=== PATIENT | male | born 1975 | race Two or more races ===

== ENCOUNTER 2020-07-29 18:51 | Emergency (ER) | payer OTHER, SELFPAY ==
[2020-07-29 19:02] VITALS: BP 131/84; PULSE 82; RESP 16; TEMP 36.3; O2SAT 98; BMI 26.0
--- NOTE | 2020-07-29 19:24 | XR_ITS ---
EXAMINATION: XR ELBOW, LEFT CLINICAL INFORMATION: Elbow injury COMPARISON: None TECHNIQUE: AP, lateral, and oblique views of the left elbow. FINDINGS: The bones and soft tissues are unremarkable. A tiny enthesitis noted arising from the olecranon. No fracture or joint effusion. Alignment is anatomic. Joint spaces are maintained. XR/XR elbow LT min 3V IMPRESSION: No evidence of acute injury.
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
== END 2020-07-29 20:46 | disposition home or self-care (01) ==
PROVIDERS: Emergency Provider Emergency Medicine; PCP Nurse Practitioner Family
DX: S16.1XXA Strain of muscle, fascia and tendon at neck level, initial encounter (principal); S50.02XA Contusion of left elbow, initial encounter; M54.2 Cervicalgia; V43.52XA Car driver injured in collision with other type car in traffic accident, initial encounter; Y93.9 Activity, unspecified; Y92.410 Unspecified street and highway as the place of occurrence of the external cause; Y99.9 Unspecified external cause status; F17.200 Nicotine dependence, unspecified, uncomplicated; Z71.6 Tobacco abuse counseling; Z79.899 Other long term (current) drug therapy
CPT/HCPCS: 73080; 99283

== ENCOUNTER 2022-01-31 10:06 | Outpatient (REF) | payer MEDICAID, SELFPAY ==
--- NOTE | ~2022-01-31 | XR_ITS ---
EXAMINATION: XR shoulder LT min 2V CLINICAL INFORMATION: Reason for Exam PAIN IN LEFT SHOULDER COMPARISON: None. TECHNIQUE: Four views of the shoulder XR/XR shoulder LT min 2V FINDINGS/IMPRESSION: * No acute fracture or dislocation. * Moderate degenerative changes of the acromioclavicular joint with loss of joint space and degenerative spurring. The glenohumeral joint space remains maintained. * No soft tissue abnormality.
== END 2022-01-31 10:07 | disposition home or self-care (01) ==
LOC: HO.XRAY 10:06
PROVIDERS: PCP Family Medicine; Visit Provider Family Medicine
DX: M25.512 Pain in left shoulder (principal)
CPT/HCPCS: 73030

== ENCOUNTER 2022-05-08 08:14 | Outpatient (REF) | payer MEDICAID, SELFPAY ==
--- NOTE | 2022-05-08 08:17 | EMG_ITS ---
Left median and ulnar motor and sensory studies were performed; left radial sensory study was performed; and left median and lateral antecubital sensory studies were performed. Paraspinal and limb muscles were tested with a needle. IMPRESSION: 1. 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 2. Mild left median neuropathy across carpal tunnel. 3. No evidence of radiculopathy. MD MELLO Auguste/KRYSTLE / [id number]
== END 2022-05-08 08:15 | disposition home or self-care (01) ==
LOC: HO.NEURO 08:14
PROVIDERS: Visit Provider Family Medicine
DX: M25.512 Pain in left shoulder (principal)
CPT/HCPCS: 95886; 95910

== ENCOUNTER → 2022-05-21 08:19 | Outpatient (REF) | payer MEDICAID, SELFPAY ==
--- NOTE | 2022-05-21 08:24 | CA_ITS ---
Transthoracic Echocardiogram Patient (Last, First, Middle): Hudson Atkins, Gender: Male Date of : 1975 Age: 46 Procedure Date: 05/21/2022 Procedure Type: Transthoracic Echocardiogram Location: OP Height: 180.34 cm Weight: 95.26 kg BSA: 2.15 m2 Heart Rate: 66 bpm BP: 122 / 82 mmHg [employer]eral Home Manager: SB Referring MD: Funmilayo Kellogg MD Senior Quality Assurance Analyst: Reynaldo Patel MD Symptoms: R42 DIZZINESS GIDDINESS R60.0 EDEMA Study Quality: Adequate ECG Rhythm: Sinus Conclusions: - 1. Normal LV systolic and diastolic function 2. Normal cardiac valvular Doppler 3. No gross pericardial effusion Findings Left Ventricle Normal left ventricular size, thickness, and systolic function. The visually estimated ejection fraction is between 60-65%. Spectral Doppler is indicative of a normal filling pattern. Peak GLS is -15.6%, which is marginally reduced. Right Ventricle Normal right ventricular cavity size and systolic function. Atria Both atria are normal in size. Interatrial shunt cannot be excluded. Aortic Valve Normal aortic valve structure and function. There is no aortic valve stenosis. There is no aortic valve regurgitation. Mitral Valve Normal mitral valve structure and function. There is trace mitral valve regurgitation. There is no mitral valve stenosis. Pulmonic Valve The pulmonic valve is likely normal. Tricuspid Valve Likely normal tricuspid valve structure and function. Tricuspid regurgitation envelope is inadequate for calculation of right ventricular systolic pressure. Great Vessels All visible segments of the aorta are normal in size. The pulmonary artery was not well visualized. Venous The inferior vena cava was not well visualized. Pericardium/Pleural There is no evidence of pericardial effusion. Prior Study Comparison No prior study available for comparison. Measurements 2D Linear Measurements IVSd: 0.93 0.6-0.9/0.6-1.0 cm LVIDd: 4.27 3.9-5.3/4.2-5.9 cm LVIDd Index: 1.99 2.4-3.2/2.2-3.1 cm/m2 LVIDs: 2.96 2.0-3.6 cm LVPWd: 1.08 0.7-1.1 cm LA Diam: 3.90 2.7-3.8/3.0-4.0 cm LAIDs Index: 1.81 1.5-2.3 cm/m2 LV Mass: 176.73 67-162/88-224 g LV Mass Index: 82.20 43-95/49-115 g/m2 LVOT Diam: 2.10 3.0+(-)1.3 cm 2D Systolic Function EF 4C: 69.20 >55% Mitral Valve MV Pk E: 0.88 MV PK A: 0.58 MV Decel Time: 220.00 E/A: 1.50 E'Lateral: 9.90 E'Medial: 8.16 E/E' Med: 10.80 E/E' Lat: 8.90 PHT: 65.00 MVA PHT: 3.38 Decel [place]: 4.00 Aortic Valve AoV Pk [place]: 1.20 AoV Mn [place]: 0.81 AoV VTI: 0.24 AoV Pk Grad: 6.00 Aov Mn Grad: 3.00 DESI Cont.VTI: 2.89 LVOT LVOT Pk [place]: 1.07 LVOT Mn [place]: 0.72 LVOT VTI: 0.20 LVOT Pk Grad: 5.00 LVOT Mn Grad: 2.00 LVOT Diam: 2.10 LVOT Area: 3.46 Diastolic Function MV Pk E: 0.88 MV Pk A: 0.58 E/A: 1.50 E'Medial: 8.16 E/E' Med: 10.80 E' Laterial: 9.90 E/E' Lat: 8.90 Right Ventricle TAPSE (mm): 19.80 TVS' [place]: 12.40 Great Vessels Aorta Sinus of Valsalva: 3.30 2.0-3.5 cm Ao Asc: 3.10 2.1-3.4 cm Pulmonary Veins Pulm Vein S/D 0.80 Pulmonary Valve PV Pk [place]: 0.96 Peak PV Grad: 4.00 Updated in Other Vendor System with Status of Final Reynaldo Patel MD electronically signed on 05/21/2022 11:25:50 AM with status of Final
== END ==
LOC: HO.CARD 08:19
PROVIDERS: PCP Family Medicine; Visit Provider Family Medicine
DX: R42 Dizziness and giddiness (principal); R60.0 Localized edema
CPT/HCPCS: 93306; 93356

== ENCOUNTER 2022-06-03 10:32 | Outpatient (REF) | payer MEDICAID, SELFPAY ==
--- NOTE | ~2022-06-03 | XR_ITS ---
EXAMINATION: BILATERAL KNEES CLINICAL INFORMATION: Pain. COMPARISON: 10/18/2014 and 06/10/2012 TECHNIQUE: AP and lateral views of each knee. FINDINGS: RIGHT KNEE: There is no evidence of acute fracture or dislocation of the right knee. There is a prominent spur seen inferior aspect of the patella at the patellofemoral joint. There is patella spur site of insertion of the quadriceps tendon. There is a small right knee effusion. Right knee joint space is maintained. LEFT KNEE: No acute fracture or dislocation is seen. There is a small left knee effusion. Left knee joint spaces are maintained. There is a small spur inferior undersurface of the patella. No destructive bony lesions identified. XR/XR knee LT 2V IMPRESSION: No evidence of acute fracture or dislocation of the right or left knee. Patellofemoral joint degenerative change right greater than left. Small bilateral knee effusions. Joint spaces maintained bilaterally.
--- NOTE | ~2022-06-03 | XR_ITS ---
EXAMINATION: BILATERAL KNEES CLINICAL INFORMATION: Pain. COMPARISON: 10/18/2014 and 06/10/2012 TECHNIQUE: AP and lateral views of each knee. FINDINGS: RIGHT KNEE: There is no evidence of acute fracture or dislocation of the right knee. There is a prominent spur seen inferior aspect of the patella at the patellofemoral joint. There is patella spur site of insertion of the quadriceps tendon. There is a small right knee effusion. Right knee joint space is maintained. LEFT KNEE: No acute fracture or dislocation is seen. There is a small left knee effusion. Left knee joint spaces are maintained. There is a small spur inferior undersurface of the patella. No destructive bony lesions identified. XR/XR knee RT 2V IMPRESSION: No evidence of acute fracture or dislocation of the right or left knee. Patellofemoral joint degenerative change right greater than left. Small bilateral knee effusions. Joint spaces maintained bilaterally.
== END 2022-06-03 10:33 | disposition home or self-care (01) ==
LOC: HO.XRAY 10:32
PROVIDERS: PCP Family Medicine; Visit Provider Family Medicine
DX: M25.561 Pain in right knee (principal); M25.562 Pain in left knee
CPT/HCPCS: 73560

== ENCOUNTER 2022-06-19 10:00 | Outpatient (RCR) | payer MEDICAID, SELFPAY | END 2022-08-27 07:53 | disposition home or self-care (01) | LOC: HO.PTCHIC 10:00 | PROVIDERS: PCP Family Medicine; Visit Provider Family Medicine | DX: M25.512 Pain in left shoulder (principal) | CPT/HCPCS: 97110; 97140; 97161 ==

== ENCOUNTER → 2022-09-16 14:52 | Outpatient (BNVA) | payer MEDICAID, SELFPAY | PROVIDERS: PCP Family Medicine; Visit Provider Surgery Vascular Surgery | DX: I83.11 Varicose veins of right lower extremity with inflammation (principal) | CPT/HCPCS: 99202 ==

== ENCOUNTER 2022-10-10 12:42 | Outpatient (REF) | payer MEDICAID, SELFPAY ==
--- NOTE | ~2022-10-10 | US_ITS ---
EXAMINATION: US VENOUS REFLUX/INSUFFICIENCY CLINICAL INFORMATION: The patient is a 47 year-old female with right lower extremity varicosities and inflammation. COMPARISON: None. TECHNIQUE: Bilateral lower extremity and venous insufficiency ultrasound was performed with velocity measurements. Color flow Doppler imaging was performed. FINDINGS: RIGHT SIDE: GREATER SAPHENOUS VEIN: The right saphenofemoral junction measures 0.7 cm. There is no reflux. The proximal thigh measurement is 0.3 cm. There is no reflux. The mid thigh measurement is 0.4 cm. There is no reflux. The above-knee measurement is 0.4 cm. There is no reflux. The at-knee measurement is 0.3 cm. There is no reflux. The below-knee measurement is 0.3 cm. The reflux time is 2076 ms. The mid-calf measurement is 0.3 cm. There is no reflux. The ankle measurement is 0.3 cm. There is no reflux. LESSER SAPHENOUS VEIN: The saphenofemoral popliteal junction measurement is 0.1 seconds. There is no reflux. The mid-calf measurement is 0.1 cm. There is no reflux. The distal-calf measurement is 0.1 cm. There is no reflux. A medial accessory right greater saphenous vein is seen, with saphenofemoral junction measurement of 0.3 cm and mid-thigh measurement of 0.2 cm. This shows no reflux. LEFT SIDE: GREATER SAPHENOUS VEIN: The right saphenofemoral junction measures 0.6 cm. There is no reflux. The proximal thigh measurement is 0.4 cm. There is no reflux. The mid thigh measurement is 0.2 cm. There is no reflux. The above-knee measurement is 0.3 cm. There is no reflux. The at-knee measurement is 0.2 cm. There is no reflux. The below-knee measurement is 0.2 cm. There is no reflux. The mid-calf measurement is 0.2 cm. There is no reflux. The ankle measurement is 0.2 cm. There is no reflux. A lateral accessory left greater saphenous vein is seen, with saphenofemoral junction measurement of 0.3 cm and mid-thigh measurement of 0.3 cm. This shows no reflux. LESSER SAPHENOUS VEIN: The saphenofemoral popliteal junction measurement is 0.2 seconds. There is no reflux. The mid-calf measurement is 0.1 cm. There is no reflux. The distal-calf measurement is 0.1 cm. There is no reflux. BILATERAL DEEP VENOUS SYSTEMS: There is no deep insufficiency on the right. No right deep venous thrombosis is seen. There is no deep insufficiency on the left. No left deep venous thrombosis is seen. US/US venous duplex LE BI IMPRESSION: 1. There is hemodynamically significant reflux of the below-knee right greater saphenous vein. 2. No hemodynamically significant reflux is seen of the left greater saphenous vein. 3. No hemodynamically significant reflux is seen of the bilateral lesser saphenous veins.
== END 2022-10-10 12:43 | disposition home or self-care (01) ==
LOC: HO.US 12:42
PROVIDERS: PCP Family Medicine; Visit Provider Surgery Vascular Surgery
DX: I83.893 Varicose veins of bilateral lower extremities with other complications (principal)
CPT/HCPCS: 93970

== ENCOUNTER 2022-10-11 11:32 | Emergency (ER) | payer MEDICAID, SELFPAY ==
--- NOTE | 2022-10-11 11:34 | ED.GENADULT ---
HPI - General Adult General Chief complaint: Upper Respiratory Symptoms <RADHA Powell - Last Filed: 10/11/22 11:40> Stated complaint: throat pain <RADHA Powell - Last Filed: 10/11/22 11:40> Time Seen by Provider: 10/11/22 12:20 <RADHA Powell - Last Filed: 10/11/22 11:40> Source: patient <Shakira Rojas CNP - Last Filed: 10/11/22 13:02> Mode of arrival: ambulatory <Shakira Rojas CNP - Last Filed: 10/11/22 13:02> Limitations: no limitations <Shakira Rojas CNP - Last Filed: 10/11/22 13:02> History of Present Illness HPI narrative: Patient is a 47-year-old male presents to the emergency department for evaluation of rhinorrhea, sore throat, intermittent tactile fever. Symptom onset was yesterday. Denies any known sick contacts. Denies dysphagia. Denies neck stiffness. Denies associated headache, lightheadedness, vision change, shortness of breath, difficulty breathing. <Shakira Rojas CNP - Last Filed: 10/11/22 13:02> Related Data Home medications: Home Medications Medication Instructions Recorded Confirmed amitriptyline 50 mg tablet 50 mg PO BEDTIME 09/16/22 ascorbic acid (vitamin C) 500 mg 500 mg PO BID 09/16/22 tablet (Vitamin C) buprenorphine 8 mg-naloxone 2 mg 10 mg sublingual DAILY 09/16/22 sublingual film (Suboxone) fwfmwcngfl-lwhkqxvlzsvrg-dyozlyug 1 - 2 tab PO Q6H PRN 09/16/22 50 mg-325 mg-40 mg tablet cholecalciferol (vitamin D3) 50 50 mcg PO DAILY 09/16/22 mcg (2,000 unit) tablet omeprazole 20 mg capsule,delayed 20 mg PO QAM 09/16/22 release Previous Rx's Medication Instructions Recorded cyclobenzaprine 5 mg tablet 5 - 10 mg PO TID PRN muscle spasm 07/29/20 #20 tabs ibuprofen 600 mg tablet 600 mg PO Q6H PRN pain #20 tabs 07/29/20 <RADHA Powell - Last Filed: 10/11/22 11:40> Allergies/adverse reactions: Allergies Allergy/AdvReac Type Severity Reaction Status Date / Time topiramate [From TOPAMAX] Allergy Unknown SENSATION Verified 09/16/22 15:08 OF PINS AND NEEDLES IN HANDS <RADHA Powell - Last Filed: 10/11/22 11:40> Review of Systems Review of Systems: Constitutional: Positive tactile fever. No chills. No weakness. No fatigue. ENT/ Mouth: No Ear Pain, positive Nasal Congestion, positive sore throat, positive Rhinorrhea, No Swallowing Difficulty Skin: No rash or itching. Cardiovascular: No chest pain. No palpitations. Respiratory: No shortness of breath. Positive cough. No sputum production. Gastrointestinal: No nausea. No vomiting. No diarrhea. No abdominal pain. Genitourinary: No burning micturition. No urinary frequency. Neurologic: No headache. No dizziness. No syncope. No numbness or tingling in the extremities. Musculoskeletal: No muscle pain. No back pain. No joint pain or stiffness. <Shakira Rojas CNP - Last Filed: 10/11/22 13:02> Yes all other systems are reviewed and are negative <Shakira Rojas CNP - Last Filed: 10/11/22 13:02> [facility] Past Medical History Attestation statement: The following information was validated with the patient. <Shakira Rojas CNP - Last Filed: 10/11/22 13:02> Source: old records reviewed <Shakira Rojas CNP - Last Filed: 10/11/22 13:02> Medical History: Medical History Migraines <RADHA Powell - Last Filed: 10/11/22 11:40> Social History Social History: Social History (Updated 09/16/22 @ 15:10 by ALEX Kelsey) Patient Tobacco Use Status: Former Tobacco user Advance Directives: No <RADHA Powell - Last Filed: 10/11/22 11:40> Physical Exam ED Vital Signs: Vital Signs - 24 hr 10/11/22 11:41 Temperature 98.2 F Pulse Rate 95 Respiratory Rate 20 Blood Pressure 129/84 Pulse Oximetry 97 Oxygen Delivery Method Room Air BMI result Body Mass Index 30.7 <RADHA Powell - Last Filed: 10/11/22 11:40> Vital Signs - 24 hr 10/11/22 11:41 Temperature 98.2 F Pulse Rate 95 Respiratory Rate 20 Blood Pressure 129/84 Pulse Oximetry 97 Oxygen Delivery Method Room Air BMI result Body Mass Index 30.7 <Shakira Rojas CNP - Last Filed: 10/11/22 13:02> Appearance: Alert.?Oriented to person, place and time. No acute distress.?Normal affect. Eyes: Pupils equal, round and reactive to light.? ENT: Pharynx mildly erythematous, no exudates, tonsillar hypertrophy. Uvula midline. No trismus. No drooling. Neck: Normal inspection.? Neck supple.??No cervical adenopathy CVS: Heart sounds normal. Normal heart rate and rhythm.? Pulses normal.?? Respiratory: No respiratory distress.? Lung sounds clear to auscultation bilaterally?? Abdomen: Soft and non-tender. Skin: Skin warm and dry.? Normal skin color.? Extremities: No lower extremity edema.? Neuro: Moves all extremities spontaneously. Sensation intact bilaterally. Ambulates with normal steady gait. <Shakira Rojas CNP - Last Filed: 10/11/22 13:02> Course Course Course Narrative: RME performed by Loree Butt PA-C. Patient is a 47 year old male presenting to the emergency department with a sore throat over the last 2 days. Swabs ordered. Patient placed back in waiting room pending results and room availability. <RADHA Powell - Last Filed: 10/11/22 11:40> Medical Decision Making Medical Decision Making MDM Narrative: Patient is a 47-year-old male presents emergency department for evaluation of upper respiratory symptoms. At the time of examination he is overall well-appearing, nontoxic. Vitals within normal limits. Reviewed testing obtained from E; COVID-19, influenza, RSV, and strep are all negative. Examination not consistent with peritonsillar retropharyngeal abscess. At this time symptoms are most consistent with viral upper respiratory infection. Reassurance provided, discussed conservative management of, reviewed worrisome signs symptoms of warrant re-evaluation in the emergency department. All questions answered. Discharged home in stable condition. <Shakira Gallegobenjamín Rojas CNP - Last Filed: 10/11/22 13:02> Differential Diagnosis Differential Diagnoses: The differential diagnosis associated with the presentation includes (As noted above) <Shakiragudelia Rojas CNP - Last Filed: 10/11/22 13:02> Lab Data MDM Lab Attestation statement: I reviewed the patient's lab results. <Shakira Rojas CNP - Last Filed: 10/11/22 13:02> Labs: Lab Results 10/11/22 10/11/22 Range/Units 11:44 11:44 Influenza Type A (PCR) NEGATIVE (Negative) Influenza Type B (PCR) NEGATIVE (Negative) RSV RNA Qual (PCR) NEGATIVE (Negative) SARS-CoV-2 RNA (RT-PCR) NEGATIVE (Negative) S. pyogenes GrpA FRANNIE Negative (Negative) <RADHA Powell - Last Filed: 10/11/22 11:40> Lab Results 10/11/22 10/11/22 Range/Units 11:44 11:44 Influenza Type A (PCR) NEGATIVE (Negative) Influenza Type B (PCR) NEGATIVE (Negative) RSV RNA Qual (PCR) NEGATIVE (Negative) SARS-CoV-2 RNA (RT-PCR) NEGATIVE (Negative) S. pyogenes GrpA FRANNIE Negative (Negative) <Shakira Rojas CNP - Last Filed: 10/11/22 13:02> Prescription Management I considered prescription management with: Pain Medication and Antibiotic (Determined viral etiology at this time, antibiotics deferred) <Shakira Rojas CNP - Last Filed: 10/11/22 13:02> Discharge Plan Discharge Clinical Impression: Pharyngitis <RADHA Powell - Last Filed: 10/11/22 11:40> Patient Disposition: Home, Self-Care <RADHA Powell - Last Filed: 10/11/22 11:40> Instructions: Pharyngitis (ED) <RADHA Powell - Last Filed: 10/11/22 11:40> Additional Instructions: As discussed, your testing today for COVID, flu, and strep were all negative. There is no indication of an abscess to your throat at this time. Viral upper respiratory infections can cause symptoms that you are experiencing. Please be sure to rest, stay well hydrated and drink plenty of fluids. Warm salt water gargles, throat lozenges, Chloraseptic throat spray can be helpful symptoms as well You can take ibuprofen 200 mg, 3 tablets (600mg) every 6-8 hours as needed for pain, in addition to Tylenol 500 mg, 2 tablets (1,000mg) every 4-6 hours as needed for pain, but not to exceed 3 doses daily (3,000mg).? Follow-up with your primary care provider as needed for persistent symptoms Return to emergency department any new or worsening symptoms or concerns. <RADHA Powlel - Last Filed: 10/11/22 11:40> Prescriptions: No Action ibuprofen 600 mg tablet 600 mg PO Q6H PRN (Reason: pain) Qty: 20 0RF cyclobenzaprine 5 mg tablet 5 - 10 mg PO TID PRN (Reason: muscle spasm) Qty: 20 0RF Rx Instructions: Take 1 or 2 tablets every 8 hours as needed for muscle spasm, this medication causes drowsiness so no driving for 8 hours after taking omeprazole 20 mg capsule,delayed release(DR/EC) 20 mg PO QAM buprenorphine-naloxone [Suboxone] 8-2 mg film 10 mg sublingual DAILY amitriptyline 50 mg tablet 50 mg PO BEDTIME ggjkidrapq-ajnzvigqlmaia-rjsn 50-325-40 mg tablet 1 - 2 tab PO Q6H PRN ascorbic acid (vitamin C) [Vitamin C] 500 mg tablet 500 mg PO BID cholecalciferol (vitamin D3) 50 mcg (2,000 unit) tablet 50 mcg PO DAILY <RADHA Powell - Last Filed: 10/11/22 11:40> Referrals: Funmilayo Kellogg MD [Primary Care Provider] - <RADHA Powell - Last Filed: 10/11/22 11:40>
[2022-10-11 11:41] VITALS: BP 129/84; PULSE 95; RESP 20; TEMP 36.8; O2SAT 97; BMI 30.7
[2022-10-11 12:00] LABS: IDNOW Serial# 6674DD1D; Strep A Nucleic Acid Negative (Negative)
[2022-10-11 12:29] LABS: Influenza A PCR NEGATIVE (Negative); Influenza B PCR NEGATIVE (Negative); Resp Syncy Virus RNA Qual PCR NEGATIVE (Negative); SARS COV2 PCR INHOUSE NEGATIVE (Negative)
== END 2022-10-11 13:06 | disposition home or self-care (01) ==
PROVIDERS: Physician Assistant Medical; Emergency Provider Emergency Medicine; PCP Family Medicine
DX: J02.9 Acute pharyngitis, unspecified (principal); Z20.822 Contact with and (suspected) exposure to COVID-19; Z20.828 Contact with and (suspected) exposure to other viral communicable diseases; F11.20 Opioid dependence, uncomplicated; Z79.899 Other long term (current) drug therapy
CPT/HCPCS: 0241U; 36415; 87651; 99282; 99283

== ENCOUNTER → 2022-11-04 10:56 | Outpatient (BNVA) | payer MEDICAID, SELFPAY | PROVIDERS: PCP Family Medicine; Visit Provider Surgery Vascular Surgery | DX: I83.11 Varicose veins of right lower extremity with inflammation (principal) | CPT/HCPCS: 99212 ==

== ENCOUNTER → 2023-01-16 10:31 | Outpatient (BNVA) | payer MEDICAID, SELFPAY | PROVIDERS: PCP Family Medicine; Visit Provider Orthopaedic Surgery | DX: G56.22 Lesion of ulnar nerve, left upper limb (principal); G56.02 Carpal tunnel syndrome, left upper limb | CPT/HCPCS: 99212 ==

== ENCOUNTER 2023-06-19 14:41 | Outpatient (REF) | payer MEDICAID, SELFPAY ==
--- NOTE | ~2023-06-19 | XR_ITS ---
EXAMINATION: XR HIP, LEFT CLINICAL INFORMATION: Left hip pain. COMPARISON: None available. TECHNIQUE: AP and frog-leg lateral views of the left hip. FINDINGS: Bony alignment and mineralization are normal. There is mild narrowing of the superolateral left acetabular joint space. Mild subchondral sclerosis is seen of the left acetabular roof. There is mild peripheral osteophyte formation of the articular surfaces of the left hip. The left femoral head is smooth. No fracture or dislocation is seen. The left sacroiliac joint and the pubic symphysis are well-maintained. No foreign body is noted. XR/XR hip LT min 2V IMPRESSION: Mild osteoarthritic change is seen of the left hip. There is no fracture or dislocation.
== END 2023-06-19 14:42 | disposition home or self-care (01) ==
LOC: HO.HHCX 14:41
PROVIDERS: Visit Provider Family Medicine
DX: M25.552 Pain in left hip (principal)
CPT/HCPCS: 73502

== ENCOUNTER → 2023-07-13 08:37 | Outpatient (REF) | payer MEDICAID, SELFPAY ==
--- NOTE | 2023-07-13 08:40 | CA_ITS ---
Acquisition Time: 2023-07-13 08:48:17 Total Exercise Time: 00:08:05 Test Indications: chest pain Medications: Protocol: TOMAS Max HR: 153 BPM 87% of Pred: 174 BPM Max BP: 166/084 mmHG Max Work Load: 10.1 METS Exercise stress test with exercise 8 min 5 sec of Tomas protocol, achieving 87% MPHR, without anginal symptoms, without arrythmia, with normotensive response to exercise, with EKG changes meeting criteria for ischemia: 0.5 - 1mm ST depression with downsloping ST inferiorly and horizontal ST depression V6 which corrects quickly in recovery. Test reviewed with Dr Liu. Recommend stress echocardiogram for further evaluation. Referred By: Funmilayo Kellogg Overread By: MATT STINSON
== END ==
LOC: HO.CARD 08:37
PROVIDERS: PCP Family Medicine; Visit Provider Family Medicine
DX: R07.9 Chest pain, unspecified (principal)
CPT/HCPCS: 93017

== ENCOUNTER 2023-07-28 10:42 | Outpatient (REF) | payer MEDICAID, SELFPAY ==
[2023-07-28 11:56] LABS: Alanine Aminotransferase 42 U/L (0-40); Albumin Level 4.1 g/dL (3.5-5.0); Alkaline Phosphatase 138 U/L (39-117); Aspartate Amino Transferase 34 U/L (5-37); Bilirubin Direct 0.1 mg/dL (0.0-0.5); Bilirubin Total 0.4 mg/dL (0.0-1.0); Total Protein 7.4 g/dL (6.5-8.0)
[2023-07-28 12:36] LABS: HIV AB/AG Nonreactive (Nonreactive); HIV Num 1 0.06 S/CO (0.00-0.99); ~HepC Num1 0.05 S/CO (0.00-0.79); ~Hepatitis C Antibody Nonreactive (Nonreactive)
== END 2023-07-28 10:43 | disposition home or self-care (01) ==
LOC: HO.HHCL 10:42
PROVIDERS: Visit Provider Emergency Medicine
DX: Z11.4 Encounter for screening for human immunodeficiency virus [HIV] (principal); Z11.3 Encounter for screening for infections with a predominantly sexual mode of transmission; F11.20 Opioid dependence, uncomplicated
CPT/HCPCS: 36415; 80076; 86803; 87389

== ENCOUNTER 2023-08-29 08:30 | Emergency (ER) | payer MEDICAID, SELFPAY ==
--- NOTE | ~2023-08-29 | XR_ITS ---
EXAMINATION: XR ELBOW, RIGHT CLINICAL INFORMATION: Right elbow pain COMPARISON: Right elbow 02/20/2020 TECHNIQUE: AP, lateral, and oblique views of the right elbow. FINDINGS: There is a 3.5 cm large loose body along the anterior elbow joint. There is a small loose body seen lateral to the olecranon process on oblique view. A small olecranon process enthesophyte is noted. There is no joint effusion.. XR/XR elbow RT min 3V IMPRESSION: Large loose body along the anterior elbow joint and a small loose body lateral to the olecranon process. The larger loose body has increased in size since the previous exam 02/20/2020 and likely cause of pain. No acute fracture or dislocation seen.
[2023-08-29 08:34] VITALS: BP 131/78; PULSE 74; RESP 18; TEMP 36.2; O2SAT 98; BMI 30.7
--- NOTE | 2023-08-29 09:27 | ED.EXTPRO ---
HPI - Extremity Problem General Chief complaint: Extremity Injury, Upper Stated complaint: R arm pain Time Seen by Provider: 08/29/23 08:57 Source: patient Mode of arrival: ambulatory Limitations: no limitations History of Present Illness HPI Narrative: 48 year old male with pmhx significant for varicose veins and carpal tunnel presents to the ED today with pain/swelling of right elbow x1 day. States that he began to have right elbow pain exacerbated with movement yesterday while relaxing at home. Overnight his elbow began to swell. Reports taking ibuprofen this morning without relief of pain. Denies recent trauma or injury to the right elbow. Admits to having this pain years ago however never received a diagnosis and it ended up resolving on its own. Denies fever, chills, right shoulder pain, right wrist pain, numbness/tingling/weakness of the right upper extremity. Related Data Home Medications Medication Instructions Recorded Confirmed amitriptyline 50 mg tablet 50 mg PO BEDTIME 09/16/22 ascorbic acid (vitamin C) 500 mg 500 mg PO BID 09/16/22 tablet (Vitamin C) buprenorphine 8 mg-naloxone 2 mg 10 mg sublingual DAILY 09/16/22 sublingual film (Suboxone) awqiuivafm-hztdgjsbgiaqr-wolluupu 1 - 2 tab PO Q6H PRN 09/16/22 50 mg-325 mg-40 mg tablet cholecalciferol (vitamin D3) 50 50 mcg PO DAILY 09/16/22 mcg (2,000 unit) tablet omeprazole 20 mg capsule,delayed 20 mg PO QAM 09/16/22 release fluticasone propionate 50 1 spray intranasal DAILY 01/16/23 mcg/actuation nasal spray,suspension Previous Rx's Medication Instructions Recorded cyclobenzaprine 5 mg tablet 5 - 10 mg (1 - 2 x 5 mg) PO TID 07/29/20 PRN muscle spasm #20 tabs ibuprofen 600 mg tablet 600 mg PO Q6H PRN pain #20 tabs 07/29/20 naproxen 500 mg tablet 500 mg PO Q8-12H PRN pain (scale 08/29/23 score 4-6) #14 tabs prednisone 50 mg tablet 50 mg PO DAILY 5 days #5 tabs 08/29/23 Allergies Allergy/AdvReac Type Severity Reaction Status Date / Time topiramate [From TOPAMAX] Allergy Unknown SENSATION Verified 08/29/23 08:33 OF PINS AND NEEDLES IN HANDS Review of Systems Review of Systems: Constitutional: No fever, chills, fatigue, night sweats, weight changes ENT/Mouth: No ear pain, hearing loss, nasal congestion, sinus pain, rhinorrhea, sore throat Eyes: No eye pain, swelling, redness, vision changes, discharge Cardio: No chest pain, palpitations, JUDGE, orthopnea, peripheral edema Pulm: No SOB, cough, sputum, wheezing, dyspnea, hemoptysis GI: No nausea, vomiting, hematemesis, abdominal pain, diarrhea, constipation, hematochezia, melena : No irregular bleeding, dysuria, frequency, urgency, hesitancy, hematuria, flank pain, urinary flow changes, urinary incontinence or retention MSK: No back pain, neck pain, joint pain, myalgias, +right elbow pain/ swelling Skin: No lesions, rashes Neuro: No weakness, numbness, paresthesias, LOC, dizziness, headache All other systems reviewed and are negative. [facility] Past Medical History Attestation statement: The following information was validated with the patient. Source: old records reviewed and nursing notes reviewed Medical History Migraines Social History Social History Unable to assess alcohol history related to: Unknown Patient Tobacco Use Status: Former Tobacco user Use of substances other than those prescribed or required for medical reasons: Unknown Advance Directives: No Advance Directives Information Provided: No Current occupational status: unemployed Current occupation: left handed Physical Exam Vital Signs: Vital Signs: Last Vital Signs Temp 97.1 F 08/29/23 08:34 Pulse 74 08/29/23 08:34 Resp 18 08/29/23 08:34 BP 131/78 08/29/23 08:34 Pulse Ox 98 08/29/23 08:34 O2 Del Method Room Air 08/29/23 08:34 BMI result Body Mass Index 30.7 Vital signs stable, afebrile Const: General: cooperative, healthy appearing, comfortable, no acute distress, alert and awake Orientation/consciousness: patient oriented x3 Limitations: no limitations HEENT: Head: Yes normal to inspection Ears: hearing grossly normal bilaterally Eyes: General: appearance normal, both eyes and all related structures Conjunctivae: conjunctivae normal Sclerae: sclerae normal Pupils: Equal, round and reactive pupils present Neck: Neck: Yes normal visual inspection, Yes full ROM and Yes no lymphadenopathy Resp: Effort & Inspection: normal respiratory effort Auscultation: clear to auscultation bilaterally Cardio: Other: 2+ radial, ulnar, and brachial pulses to RUE Rate: regular rate Rhythm: regular rhythm Skin: General skin exam: no rashes or lesions noted Neuro: General: patient oriented x3, gait normal and moves all extremities Cranial nerves: Yes Equal, round and reactive pupils present Extrem: Other: + slight edema noted to ulnar aspect of right elbow. Full ROM intact to right elbow with pain elicited on flexion. Olecranon it WNL. No palpable deformity, warmth, or fluctuance. No tenderness to palpation of the right elbow. Strength to elbow 5/5 intact. NV intact distally. Manager Of Production strength intact. General: Yes full ROM, Yes capillary refill normal and Yes normal exam except as noted Course Course Course Narrative: 929-- radiographs of the right elbow showing large loose body along the anterior elbow joint, small loose body lateral to olecranon process, no acute fracture or dislocation. Likely the cause of patient's discomfort/swelling. Discussed results of x-ray with patient. Will place Oneal wrap to help with swelling. Prednisone and naproxen sent to pharmacy. Patient provided with a referral to Orthopedics for follow-up. Patient is in agreement with this plan. Patient has remained stable throughout ED visit today. Discussed strict return precautions. All questions answered at this time. Patient is agreeable with disposition and stable for discharge. Medical Decision Making Medical Decision Making MDM Narrative: 48 year old male with pmhx significant for varicose veins and carpal tunnel presents to the ED today with pain/swelling of right elbow x1 day. Vital signs stable, afebrile. Patient is nontoxic appearing and in no acute distress. On examination, there is slight edema noted to ulnar aspect of right elbow. Full ROM intact to right elbow with pain elicited on flexion. Olecranon it WNL. No palpable deformity, warmth, or fluctuance. No tenderness to palpation of the right elbow. Strength to elbow 5/5 intact. NV intact distally. Manager Of Production strength intact. Negative Tinel sign. 2+ radial, ulnar, brachial pulses to right upper extremity. NV intact distally. Clinical concern for MSK sprain/strain, arthritis, fracture, dislocation, lateral and medial epicondylitis, cubital tunnel syndrome. Unlikely gout, septic arthritis, septic joint, reactive arthritis, threat to limb, neurovascular compromise. Plan for radiographs and re-evaluation. Differential Diagnosis Differential Diagnoses: The differential diagnosis associated with the presentation includes as above. Admission/Observation Not indicated. Independent Interpretation I performed an independent interpretation of an: Plain X-Ray Interpretation: XR right elbow with large loose body along anterior elbow joint, agree with radiologist's interpretation. Radiology Impression Discussion of test interpretation with radiology: I have reviewed the radiologist's reading. Radiologist Impression: XR elbow RT min 3V IMPRESSION: Large loose body along the anterior elbow joint and a small loose body lateral to the olecranon process. The larger loose body has increased in size since the previous exam 02/20/2020 and likely cause of pain. No acute fracture or dislocation seen. Independent Historian Clinical information obtained from an independent historian. History obtained from or confirmed by: Friend External Record Review External record reviewed: Inpatient record, Office record, Outpatient record, Prior outpatient labs, Prior outpatient radiology, Primary care record and Outside ED record Prescription Management I considered prescription management with: Pain Medication and Other (steroid) Procedures Orthopedic Splinting/Casting Injury #1: Side: right Upper Extremity Injury Location: elbow Upper Extremity Immobilizer: Oneal wrap Critical Care Time Critical Care Time Critical Care Time: No Discharge Plan Discharge Clinical Impression: Loose body in elbow joint, Effusion of right elbow Patient Disposition: Home, Self-Care Instructions: Swollen Joint (ED) Additional Instructions: The x-ray of your right elbow shows loose bodies within the elbow joint. These are pieces of cartilage that break off and float around the joint causing pain. You were provided with an Oneal wrap today. Please keep this applied as the compression helps decrease swelling. You may take it off to shower. Prednisone as a steroid that has been sent to your pharmacy. Take this over the next 5 days as prescribed. Naproxen as an anti-inflammatory that has been sent to your pharmacy. Take this as needed for pain/discomfort. Do not take this with ibuprofen or other NSAIDs as it can cause increased risk of GI bleeding. You have been provided with a referral to an orthopedic doctor. Call them to make an appointment. They will not call you. Follow-up with your primary care provider as needed. If symptoms persist or worsen please return to the emergency department. The case of an emergency call 911. Prescriptions: New naproxen 500 mg tablet 500 mg PO Q8-12H PRN (Reason: pain (scale score 4-6)) Qty: 14 0RF prednisone 50 mg tablet 50 mg PO DAILY 5 Days Qty: 5 0RF No Action ibuprofen 600 mg tablet 600 mg PO Q6H PRN (Reason: pain) Qty: 20 0RF cyclobenzaprine 5 mg tablet 5 - 10 mg PO TID PRN (Reason: muscle spasm) Qty: 20 0RF Rx Instructions: Take 1 or 2 tablets every 8 hours as needed for muscle spasm, this medication causes drowsiness so no driving for 8 hours after taking omeprazole 20 mg capsule,delayed release(DR/EC) 20 mg PO QAM buprenorphine-naloxone [Suboxone] 8-2 mg film 10 mg sublingual DAILY amitriptyline 50 mg tablet 50 mg PO BEDTIME nqwiknndey-cdqzwzrunrkvt-dgnh 50-325-40 mg tablet 1 - 2 tab PO Q6H PRN ascorbic acid (vitamin C) [Vitamin C] 500 mg tablet 500 mg PO BID cholecalciferol (vitamin D3) 50 mcg (2,000 unit) tablet 50 mcg PO DAILY fluticasone propionate 50 mcg/actuation spray,suspension 1 spray intranasal DAILY Referrals: [facility] [Provider Group] - 5 days (XR elbow RT min 3V IMPRESSION: Large loose body along the anterior elbow joint and a small loose body lateral to the olecranon process. The larger loose body has increased in size since the previous exam 02/20/2020 and likely cause of pain. No acute fracture or dislocation seen.) Interventions: ED Discharge Assessment Last Done: 08/29/23 09:41 Discharge Date/Time: 08/29/23 09:42 Print Language: Montserratian
== END 2023-08-29 09:42 | disposition home or self-care (01) ==
PROVIDERS: Emergency Provider Emergency Medicine; PCP Family Medicine
DX: M24.021 Loose body in right elbow (principal); M25.421 Effusion, right elbow; F11.20 Opioid dependence, uncomplicated; Z79.899 Other long term (current) drug therapy; Z87.891 Personal history of nicotine dependence
CPT/HCPCS: 73080; 99283; 99284

== ENCOUNTER → 2023-09-04 10:34 | Outpatient (REF) | payer MEDICAID, SELFPAY ==
--- NOTE | 2023-09-04 10:37 | CA_ITS ---
Acquisition Time: 2023-09-04 10:41:58 Total Exercise Time: 00:09:20 Test Indications: ABN ETT CP Medications: SEE H Protocol: TOMAS Max HR: 160 BPM 92% of Pred: 173 BPM Max BP: 158/084 mmHG Max Work Load: 10.6 METS Exercise stress test with exercise 9 min 20 sec of Tomas protocol, achieving 92% MPHR, without anginal symptoms, with isolated PVC in early recovery, with normotensive response to exercise, with borderline EKG changes leads III, V5-V6, Some artifact present, can't exclude ischemia. Echo images obtained at rest and immediately post peak exercise. heart rate noted to come down quickly in recovery. Definity contrast used. Test reviewed with Dr Patel Referred By: Funmilayo Kellogg Overread By: MATT STINSON
== END ==
LOC: HO.CARD 10:34
PROVIDERS: PCP Family Medicine; Visit Provider Family Medicine
DX: R94.39 Abnormal result of other cardiovascular function study (principal)
CPT/HCPCS: 93350; Q9957

== ENCOUNTER 2023-10-09 10:05 | Outpatient (AMB) | payer MEDICAID, SELFPAY ==
[2023-10-09 10:07] VITALS: BMI 30.7
--- NOTE | 2023-10-09 10:07 | A.OFFVIS_ITS ---
Intake Vital Signs 10/09/23 10:07 Height 5 ft 11 in Weight 220 lb BMI 30.7 Intake Visit Reasons: [facility] - RT Elbow pain Intake Note: Hudson is a 48 year old right hand dominant male who presents today for a evolution of his right elbow pain. patient reports pain started about a month ago. He states that his pain is worse when he hyperextend his arm. Patient states that he is not having any pain at the moment. Allergies topiramate [From TOPAMAX] Allergy (Unknown, Verified 10/09/23 10:07) SENSATION OF PINS AND NEEDLES IN HANDS HPI [facility] - RT Elbow pain HPI Details 48-year-old male who presents in the off ice today, as a new patient, for an evaluation of right elbow pain. The patient reports his pain began about a month ago, in 08/2023. He claims the pain is worse when hyper-extending the right elbow. He states he is not having any pain at this time. He states he was given an DELROY wrap. He reports some limited ROM, but does not have pain. He denies kidney issues. He reports being under currently cardiac evaluation. He denies having any implants in the body. [facility], [facility] Medical History Migraines Social History Unable to assess alcohol history related to: Unknown Patient Tobacco Use Status: Former Tobacco user Current occupational status: unemployed Current occupation: left handed Review of Systems Const All systems reviewed & are unremarkable except as noted in HPI and below Physical Exam Vital Signs: BMI result Body Mass Index 30.7 Const General: cooperative and no acute distress Orientation/consciousness: patient oriented x3 Resp Effort & Inspection: normal respiratory effort and able to speak in complete sentences Cardio Peripheral pulses: Peripheral pulses 2+ throughout Skin General skin exam: no rashes or lesions noted Neuro General: patient oriented x3 Extrem Other: Right elbow: Normal to inspection. No ecchymosis, erythema, or edema. No tenderness to palpation over the olecranon. Hard mobile mass just proximal to the medial epicondyle that is palpable No tenderness to the medial or lateral epicondyle. NVI. Assessment & Plan Assessment & Plan (1) Mass of right elbow: Code(s): R22.31 - Localized swelling, mass and lump, right upper limb Plan Mr. Atkins is a 48-year-old male who presents in the office today, as a new patient, for an evaluation of right elbow pain. The patient reports his pain began about a month ago, in 08/2023. He claims the pain is worse when hyper- extending the right elbow. He states he is not having any pain at this time. He states he was given an DELROY wrap. He reports some limited ROM, but does not have pain. He denies kidney issues. He reports being under currently cardiac evaluation. He denies having any implants in the body. The patient will be referred for an MRI with and without contrast for further evaluation of the right elbow. Follow up will be after the MRI is obtained or in 4 weeks to discuss results, or sooner if needed. X-rays of the right elbow, obtained on 08/29/2023, revealed: There is a 3.5 cm large loose body along the anterior elbow joint. There is a small loose body seen lateral to the olecranon process on oblique view. A small olecranon process enthesophyte is noted. There is no joint effusion. Orders: Orders MR elbow RT wo/w con Today R22.31 - Localized swelling, mass and lump, right upper limb Patient Instructions: Scribed for Dede Carrero PA-C by Sallie Sanabria certified medical assistant, on 10/09/2023 at 10:07 am, EST. Coding Level of Care Code New Pt Level 4 (32242) Diagnoses Mass of right elbow R22.31
== END 2023-10-09 11:14 | disposition home or self-care (01) ==
PROVIDERS: PCP Family Medicine; Visit Provider Physician Assistant
DX: R22.31 Localized swelling, mass and lump, right upper limb (principal)
CPT/HCPCS: 99204

== ENCOUNTER → 2023-10-09 10:05 | Outpatient (BNVA) | payer MEDICAID, SELFPAY | PROVIDERS: PCP Family Medicine; Visit Provider Physician Assistant | DX: M25.521 Pain in right elbow (principal); R22.31 Localized swelling, mass and lump, right upper limb | CPT/HCPCS: 99212 ==

== ENCOUNTER 2023-10-09 14:14 | Outpatient (REF) | payer MEDICAID, SELFPAY | END 2023-10-09 14:15 | disposition home or self-care (01) | LOC: HO.MRI 14:14 | PROVIDERS: PCP Family Medicine; Visit Provider Physician Assistant | DX: Z13.89 Encounter for screening for other disorder (principal) ==

== ENCOUNTER 2023-11-10 12:27 | Outpatient (REF) | payer MEDICAID, SELFPAY ==
--- NOTE | ~2023-11-10 | XR_ITS ---
EXAMINATION: XR ABDOMEN KUB CLINICAL INDICATION: Suprapubic pain. Evaluate for stool volume or intestinal gas. COMPARISON: Ultrasound abdomen of 03/30/2017. CT abdomen and pelvis of 10/16/2014. TECHNIQUE: 2 AP views of the abdomen. FINDINGS: Moderate to large amount of stool in the colon. Nonobstructive bowel gas pattern. Degenerative changes in the lumbar spine and bilateral hips. Radiodensity overlying the right iliac region possibly representing a clip. XR/XR abdomen 1V IMPRESSION: Moderate to large amount of stool in the colon. Nonobstructive bowel gas pattern.
== END 2023-11-10 12:28 | disposition home or self-care (01) ==
LOC: HO.XRAY 12:27
PROVIDERS: PCP Family Medicine; Visit Provider Internal Medicine
DX: R10.2 Pelvic and perineal pain (principal)
CPT/HCPCS: 74018

== ENCOUNTER 2023-12-01 15:06 | Outpatient (AMB) | payer MEDICAID, SELFPAY ==
--- NOTE | 2023-12-01 15:08 | MHC.OFFVIS ---
Intake Vital Signs 12/01/23 15:11 Height 5 ft 11 in Weight 227 lb 1.218 oz BMI 31.7 BP 126/84 Blood Pressure Location Lt brachial Position Sitting Pulse 76 Intake Visit Reasons: [employer]/Dr. Kellogg/Abn stress test Intake Note: NPV w/ EKG Shank Taper Required: No Accompanied by: Self / Same As Patient Allergies topiramate [From TOPAMAX] Allergy (Unknown, Verified 12/01/23 15:11) SENSATION OF PINS AND NEEDLES IN HANDS Medication List - Last Reconciled 12/01/23 by Yon Moreira MD amitriptyline 50 mg PO BEDTIME ascorbic acid (vitamin C) (Vitamin C) 500 mg PO BID buprenorphine-naloxone 8-2 mg (Suboxone) 10 mg sublingual DAILY ltfqgwheko-qgkrcyxjjwcpl-skhm 50-325-40 mg 1 - 2 tabs PO Q6H PRN cholecalciferol (vitamin D3) 50 mcg PO DAILY cyclobenzaprine 5 - 10 mg (1 - 2 x 5 mg) PO TID PRN fluticasone propionate 50 mcg/actuation 1 spray intranasal DAILY ibuprofen 600 mg PO Q6H PRN naproxen 500 mg PO Q8-12H PRN omeprazole 20 mg PO QAM prednisone 50 mg PO DAILY 5 days HPI HPI Comments History of Present Illness Details [place] he is here for consultation regarding chest pain. He states that he gets substernal chest pain off and on. This can happen any time. Not necessarily with exertion. He also gets radiation down the left arm. Otherwise, some sensations of heart pounding off and on. No known coronary disease. No known diabetes or hypertension. History of substance abuse in the past but not recently. [facility] Medical History (Updated 12/01/23 @ 15:28 by Yon Moreira MD) Migraines Surgical History (Updated 12/01/23 @ 15:12 by Shakira Majano) No pertinent past surgical history Family History (Updated 12/01/23 @ 15:12 by Shakira Majano) Father Heart problem Social History Unable to assess alcohol history related to: Unknown Patient Tobacco Use Status: Former Tobacco user Current occupational status: unemployed Current occupation: left handed Review of Systems Const Denies chills, Denies daytime sleepiness, Denies fatigue, Denies fever(s), Denies frequent falls, Denies night sweats, Denies snoring, Denies weakness, Denies weight gain and Denies weight loss Eyes Denies loss of vision ENT Denies dizziness and Denies hearing loss Card Denies chest pain, Denies chest pain with activity, Denies syncope, Denies rapid heart rate, Denies edema, Denies claudication, Denies leg edema, Denies lightheadedness and Denies orthopnea Resp Denies cough, Denies excessive phlegm production, Denies snoring and Denies wheezing GI Denies abdominal pain, Denies hematochezia, Denies change in bowel habits, Denies change in stool character, Denies heartburn, Denies nausea and Denies vomiting Denies hematuria, Denies dysuria and Denies urinary frequency Musc Denies arthralgias, Denies muscle weakness, Denies numbness and Denies tingling Skin/Breast Denies nail changes and Denies rash Neuro Denies Abnormal speech present, Denies dizziness, Denies syncope, Denies frequent falls, Denies loss of vision, Denies memory loss, Denies numbness, Denies tingling and Denies weakness Psych Denies depression and Denies memory loss Endo Denies fatigue Aller/Immun Denies wheezing Physical Exam Vital Signs: Last Vital Signs Pulse 76 12/01/23 15:11 BP 126/84 12/01/23 15:11 BMI result Body Mass Index 31.7 Const General: comfortable and no acute distress Orientation/consciousness: patient oriented x3 HEENT Other: Unremarkable Head: Yes normal to inspection Neck Neck: Yes normal visual inspection Chest Chest palpation & inspection: normal inspection of the chest Resp Auscultation: clear to auscultation bilaterally Cardio Palpation: normal PMI Heart sounds: S1 normal heart sound present, S2 normal heart sound present, no gallops, no murmurs and no rubs GI Palpation (GI): Soft to palpation Back/Spine/Pelvis Other: unremarkable Skin General skin exam: no rashes or lesions noted Neuro General: patient oriented x3 Speech: No Abnormal speech present Extrem General: Yes normal to inspection Psych Mental Status: mental status grossly normal Assessment & Plan Assessment & Plan (1) Precordial chest pain: Code(s): R07.2 - Precordial pain Plan In the initial EKG, he was able to reach 10.1 Mets. Did not have angina. However, there was ST depression which was downsloping/horizontal concerning for ischemia. Then it was repeated with an exercise stress echo which was unremarkable at 10.6 Mets. He has had an echocardiogram in 2021 which showed preserved LVEF at 60-65% and mildly diminished peak global longitudinal strain. Based on the above, less likely that he has any obstructive CAD causing chest pains. However, as the symptoms are still bothersome, we will do a coronary CTA as well. Patient agrees. Orders: Orders Basic Metabolic Panel Today R07.2 - Precordial pain CT Cardiac Coronary Angio Today I25.10 - Atherosclerotic heart disease of [place] coronary artery without angina pectoris, R07.2 - Precordial pain Coding Level of Care Code New Pt Level 3 (95585) Diagnoses Precordial chest pain R07.2
[2023-12-01 15:11] VITALS: BP 126/84; PULSE 76; BMI 31.7
== END 2023-12-01 15:31 | disposition home or self-care (01) ==
PROVIDERS: PCP Family Medicine; Visit Provider Internal Medicine
DX: R07.2 Precordial pain (principal)
CPT/HCPCS: 93010; 99203

== ENCOUNTER → 2023-12-01 15:06 | Outpatient (BNVA) | payer MEDICAID, SELFPAY | PROVIDERS: PCP Family Medicine; Visit Provider Internal Medicine | DX: R07.2 Precordial pain (principal); I25.10 Atherosclerotic heart disease of native coronary artery without angina pectoris | CPT/HCPCS: 93005; 99202 ==

== ENCOUNTER 2023-12-09 08:56 | Outpatient (REF) | payer MEDICAID, SELFPAY ==
--- NOTE | ~2023-12-09 | XR_ITS ---
EXAMINATION: XR CHEST CLINICAL INFORMATION: Cough x3 weeks COMPARISON: Chest radiograph from : 2 views of the chest were obtained. FINDINGS: Slight bibasilar atelectasis versus evolving infectious/inflammatory etiology, right greater than left. No pneumothorax. Trachea is midline. Cardiac mediastinal silhouette is not enlarged. No large pleural effusion. Osseous structures are intact. Soft tissues are unremarkable. XR/XR chest 2V IMPRESSION: Slight bibasilar atelectasis versus evolving infectious/inflammatory etiology, right greater than left.
== END 2023-12-09 08:57 | disposition home or self-care (01) ==
LOC: HO.HHCX 08:56
PROVIDERS: Visit Provider Internal Medicine
DX: R06.02 Shortness of breath (principal); J06.9 Acute upper respiratory infection, unspecified
CPT/HCPCS: 71046

== ENCOUNTER 2023-12-11 09:35 | Outpatient (AMB) | payer MEDICAID, SELFPAY ==
--- NOTE | 2023-12-11 09:38 | A.OFFVIS_ITS ---
Intake Intake Visit Reasons: OV - rt elbow MRI review Intake Note: Hudson is a 48 year old left hand dominant male who presents today for a MRI review of right elbow pain. MRI is done 10/18/23. Patient reports he is feeling a bit worse. He states that his pain is worse when he is lifting something heavy or using the phone. Allergies topiramate [From TOPAMAX] Allergy (Unknown, Verified 12/11/23 09:40) SENSATION OF PINS AND NEEDLES IN HANDS HPI OV - rt elbow MRI review HPI Details 48-year-old left hand dominant male who presents in the office today for a follow up on a mass of the right elbow and MRI review. I last saw the patient in the office on 10/09/2023. While in the office today the patient reports he is feeling a bit worse. He also reports an increase in pain with lifting heavy items or using the phone. He states he woke up about 4 months ago with the pain in the elbow. He does not recall any injury at this time. [facility] Medical History (Updated 12/11/23 @ 10:22 by Sallie Sanabria) Migraines Surgical History (Updated 12/01/23 @ 15:12 by Shakira Majano) No pertinent past surgical history Family History (Updated 12/01/23 @ 15:12 by Shakira Majano) Father Heart problem Social History Unable to assess alcohol history related to: Unknown Patient Tobacco Use Status: Former Tobacco user Current occupational status: unemployed Current occupation: left handed Review of Systems Const All systems reviewed & are unremarkable except as noted in HPI and below Physical Exam Const General: cooperative and no acute distress Orientation/consciousness: patient oriented x3 Resp Effort & Inspection: normal respiratory effort and able to speak in complete sentences Cardio Peripheral pulses: Peripheral pulses 2+ throughout Skin General skin exam: no rashes or lesions noted Neuro General: patient oriented x3 Extrem Other: Right elbow: Normal to inspection. No ecchymosis, erythema, or edema. No tenderness to palpation over the olecranon. Hard mobile mass just proximal to the medial epicondyle that is palpable No tenderness to the medial or lateral epicondyle. NVI. Assessment & Plan Assessment & Plan (1) Loose body in right elbow: Code(s): M24.021 - Loose body in right elbow Plan Mr. Atkins is a 48-year-old left hand dominant male who presents in the office today for a follow up on a mass of the right elbow and MRI review. I last saw the patient in the office on 10/09/2023. While in the office today the patient reports he is feeling a bit worse. He also reports an increase in pain with lifting heavy items or using the phone. He states he woke up about 4 months ago with the pain in the elbow. He does not recall any injury at this time. Dr. Pina was available to see the patient with me while in the office today and a collaborative treatment plan was made. Conservative treatment verses surgical intervention was discuss with the patient while in the office today. Follow up will be [address] Pina, or sooner if needed. MRI of the right elbow, obtained at [facility] on 10/16/2023, which revealed: Large mass within the volar elbow joint likely reflects a large ossific joint body and does not demonstrate significant enhancement. Please correlate with radiographs and/or CT scan. There is evidence of tenosynovitis. Patient Instructions: Scribed by Sallie Sanabria medical referral coordinator, for Dede Carrero PA-C on 12/11/2023 at 9:40 am, EST. Coding Level of Care Code Est Pt Level 3 (98310) Diagnoses Loose body in right elbow M24.021
== END 2023-12-11 10:26 | disposition home or self-care (01) ==
PROVIDERS: PCP Family Medicine; Visit Provider Physician Assistant
DX: M24.021 Loose body in right elbow (principal)
CPT/HCPCS: 99213

== ENCOUNTER → 2023-12-11 09:35 | Outpatient (BNVA) | payer MEDICAID, SELFPAY | PROVIDERS: PCP Family Medicine; Visit Provider Physician Assistant | DX: M24.021 Loose body in right elbow (principal) | CPT/HCPCS: 99212 ==

== ENCOUNTER 2023-12-25 11:20 | Outpatient (REF) | payer MEDICAID, SELFPAY ==
[2023-12-25 14:53] LABS: MANUAL DIFF FLAG NO
[2023-12-25 14:58] LABS: Basophils Absolute Auto 0.1 X10*3/uL (0.0-0.2); Eosinophils Absolute Auto 0.5 X10*3/uL (0.0-0.4); Eosinophils Percent Auto 10.1 % (0-4); Hematocrit 43.4 % (42.0-52.0); Hemoglobin 14.7 g/dl (14.0-18.0); Imm Gran Abs Auto 0.01 X10*3/uL (0.00-0.03); Imm Gran Pct Auto 0.2 % (0.0-0.4); Lymphocytes Absolute Auto 2.3 X10*3/uL (1.2-4.9); Lymphocytes Percent Auto 45.9 % (20-40); Mean Corpuscular HGB Conc 33.9 g/dl (31.0-36.0); Mean Corpuscular Hemoglobin 29.2 pg (27.0-33.0); Mean Corpuscular Volume 86.3 fL (80.0-98.0); Mean Platelet Volume 12.1 fL (9.4-12.4); Monocytes Absolute Auto 0.5 X10*3/uL (0.1-1.2); Monocytes Percent Auto 8.9 % (2-11); Neutrophils Absolute Auto 1.7 x10*3/uL (2.0-8.3); Neutrophils Percent Auto 33.9 % (45-73); Platelet Count 217 X10*3/uL (160-400); Red Blood Count 5.03 X10*6/uL (4.60-5.80); Red Cell Distribution Width 13.6 % (11.0-16.0)
[2023-12-25 15:21] LABS: Anion Gap 10 (12-20); Blood Urea Nitrogen 14 mg/dL (9-16); Calcium 8.9 mg/dL (8.4-10.2); Carbon Dioxide 27 mmol/L (22-29); Chloride 106 mmol/L (96-108); Estimated Glomerular Filt Rate > 60; Glucose Random 95 mg/dL (60-115); Potassium 4.2 mmol/L (3.3-5.1); Sodium 139 mmol/L (135-145)
[2023-12-25 15:22] LABS: Alanine Aminotransferase 38 U/L (0-40); Albumin Level 3.9 g/dL (3.5-5.0); Alkaline Phosphatase 132 U/L (39-117); Aspartate Amino Transferase 31 U/L (5-37); Bilirubin Total 0.4 mg/dL (0.0-1.0); Total Protein 7.1 g/dL (6.5-8.0)
[2023-12-25 15:29] LABS: TSH reflex Free T4 0.67 uIU/mL (0.32-4.0)
== END 2023-12-25 11:21 | disposition home or self-care (01) ==
LOC: HO.CHCLDS 11:20
PROVIDERS: Visit Provider Family Medicine
DX: E66.3 Overweight (principal)
CPT/HCPCS: 36415; 80053; 84443; 85025

== ENCOUNTER 2024-01-26 16:19 | Outpatient (REF) | payer MEDICAID, SELFPAY | END 2024-01-26 16:20 | disposition home or self-care (01) | LOC: HO.CHCLNP 16:19 | PROVIDERS: Visit Provider Internal Medicine | DX: J02.9 Acute pharyngitis, unspecified (principal) | CPT/HCPCS: 87070 ==

== ENCOUNTER 2024-02-09 19:53 | Outpatient (REF) | payer MEDICAID, SELFPAY ==
[2024-02-15 01:19] LABS: C. Trachomatis RNA TMA, Throat NOT DETECTED; N. gonorrhoeae RNA TMA, Throat NOT DETECTED
== END 2024-02-09 19:54 | disposition home or self-care (01) ==
LOC: HO.HHCLNP 19:53
PROVIDERS: Visit Provider Student in an Organized Health Care Education/Training Program
DX: J02.9 Acute pharyngitis, unspecified (principal)
CPT/HCPCS: 87070; 87147; 87491; 87591

== ENCOUNTER 2024-03-14 10:16 | Outpatient (AMB) | payer MEDICAID, SELFPAY ==
--- NOTE | 2024-03-14 10:23 | MHC.OFFVIS ---
Vital Signs 03/14/24 10:25 Height 5 ft 11 in Weight 225 lb BMI 31.4 Handedness Left Intake Visit Reasons: OV - rt elbow pain Intake Note: Hudson is a 48 year old left hand dominant male who presents today for a follow up of right elbow pain. Last seen with Dede Carrero on 12/11/23. MRI of the right elbow, obtained at [facility] on 10/16/2023. Patient reports he noticed a lump in 2020 in the lateral aspect of his elbow that started off small, 2-3 years later he noticed is grow larger. He states increased pain withfelxion and extension. He has tried Motrin but found no relief. States he has numbness and tingling in both hands. Allergies topiramate [From TOPAMAX] Allergy (Unknown, Verified 03/14/24 10:31) SENSATION OF PINS AND NEEDLES IN HANDS HPI HPI OV - rt elbow pain: Details: Hudson is a 48 year old left hand dominant male who presents today for a follow up of right elbow pain. Last seen with Dede Carrero on 12/11/23. MRI of the right elbow, obtained at [facility] on 10/16/2023. Patient reports he noticed a lump in 2020 in the lateral aspect of his elbow that started off small, 2-3 years later he noticed is grow larger. He states increased pain withfelxion and extension. He has tried Motrin but found no relief. States he has numbness and tingling in both hands MRI of the right elbow, obtained at [facility] on 10/16/2023, which revealed: Large mass within the volar elbow joint likely reflects a large ossific joint body and does not demonstrate significant enhancement. Please correlate with radiographs and/or CT scan. There is evidence of tenosynovitis. [facility] Medical History Migraines Surgical History No pertinent past surgical history Family History Father Heart problem Social History Unable to assess alcohol history related to: Unknown Patient Tobacco Use Status: Former Tobacco user Current occupational status: unemployed Current occupation: left handed Physical Exam Vital Signs: BMI result Body Mass Index 31.4 Extrem Other: full ROM right elbow tender palpable mass deep to biceps that extends medial to lateral. Assessment & Plan Assessment & Plan (1) Mass of right elbow: Code(s): R22.31 - Localized swelling, mass and lump, right upper limb Category: Medical Plan: Large ossific body in anterior right distal humerus. MRI shows no enhancement. I discussed options of removal and the risk of nerve injury. He will let me know if he would like to proceed but he feels it is not painful and he is not comfortable taking a risk of complication. Coding Level of Care Code Est Pt Level 4 (32070) Diagnoses Mass of right elbow R22.31
[2024-03-14 10:25] VITALS: BMI 31.4
== END 2024-03-14 10:57 | disposition home or self-care (01) ==
PROVIDERS: PCP Family Medicine; Referring Provider Family Medicine; Visit Provider Orthopaedic Surgery
DX: R22.31 Localized swelling, mass and lump, right upper limb (principal)
CPT/HCPCS: 99213

== ENCOUNTER → 2024-03-14 10:16 | Outpatient (BNVA) | payer MEDICAID, SELFPAY | PROVIDERS: PCP Family Medicine; Visit Provider Orthopaedic Surgery | DX: R22.31 Localized swelling, mass and lump, right upper limb (principal) | CPT/HCPCS: 99212 ==

== ENCOUNTER 2024-04-05 13:18 | Outpatient (AMB) | payer MEDICAID, SELFPAY ==
[2024-04-05 13:30] VITALS: BP 122/64; PULSE 79; BMI 31.4
--- NOTE | 2024-04-05 13:30 | MHC.OFFVIS ---
Vital Signs 04/05/24 13:30 Height 5 ft 11 in Weight 224 lb 13.944 oz BMI 31.4 BP 122/64 Blood Pressure Location Lt brachial Position Sitting Pulse 79 Pulse Source Pulse Oximeter Intake Visit Reasons: f/up cta/ HS Allergies topiramate [From TOPAMAX] Allergy (Unknown, Verified 03/14/24 10:31) SENSATION OF PINS AND NEEDLES IN HANDS HPI Comments Details: 48-year-old male presents today for a follow-up after a CT of his heart. He reports he has been overall okay. He gets a weird sensation in his arms which he cannot describe. He reports he is still getting chest discomforts sand happens mostly at rest. He does not smoke, drink alcohol, or use illicit drugs. He has been eating healthy. Reports an occational swelling in lower extermities. [facility] Medical History (Updated 04/05/24 @ 13:51 by Yolande Dennis NP) Swelling CAD (coronary artery disease) Migraines Surgical History No pertinent past surgical history Family History Father Heart problem Social History Unable to assess alcohol history related to: Unknown Patient Tobacco Use Status: Former Tobacco user Current occupational status: unemployed Current occupation: left handed Review of Systems Const Denies weakness ENT Denies dizziness Card Denies chest pain, Denies chest pain with activity, Denies syncope, Denies rapid heart rate, Denies pedal edema, Denies edema, Denies leg edema, Denies lightheadedness, Denies palpitations, Denies dyspnea, Denies dyspnea on exertion and Denies orthopnea Resp Denies cough, Denies dyspnea and Denies dyspnea on exertion GI Denies hematochezia and Denies change in stool character Musc Denies abnormal gait, Denies muscle cramps, Denies muscle weakness, Denies numbness, Denies radiating pain into limb and Denies tingling Neuro Denies abnormal gait, Denies dizziness, Denies syncope, Denies numbness, Denies tingling and Denies weakness Endo Denies palpitations Physical Exam Vital Signs: Last Vital Signs Pulse 79 04/05/24 13:30 BP 122/64 04/05/24 13:30 BMI result Body Mass Index 31.4 Results Reviewed Results Reviewed: CT of Heart 03/09/24 Visualized Portions of Extracardiac Structures: Thoracic aorta: No significant findings. Pulmonary arteries: No significant findings. Lungs: No significant findings. Mediastinum and cristina: No significant findings. Bones: No acute findings. Upper abdomen: Unremarkable. Heart and Valves: Left Ventricle: Size and morphology appear normal. Right Ventricle: Size and morphology appear without definite abnormality. Atria: Normal. Aortic valve: Normal trileaflet appearance. Coronary Artery Angiography: Dominance: Right. Left Main: The ostium is normally positioned. The left main coronary artery is normal. Left Anterior Descending: In the proximal LAD there is a short segment of noncalcified plaque causing minimal stenosis (1-24%). No plaque or stenosis in the remainder of the LAD or the first or second diagonal. Left Circumflex Artery: No plaque or stenosis in the proximal or mid-LCx. Distal to the takeoff of the second OM, the LCx is diminutive and too small to evaluate. No plaque or stenosis in the first or second OMs. Ramus Intermedius: No obvious plaque or stenosis in the ramus. Right Coronary Artery: The ostium is normally positioned. No plaque or stenosis in the RCA. The PDA and PDL are too small to evaluate. IMPRESSION: 1. Minimal stenosis in the proximal LAD due to a short segment of noncalcified plaque. Otherwise no obvious atherosclerotic coronary artery disease. 2. Normal coronary anatomy. WSN: [id number] Assessment & Plan Assessment & Plan (1) CAD (coronary artery disease): Code(s): I25.10 - Atherosclerotic heart disease of [place] coronary artery without angina pectoris Category: Medical Plan: Mild CAD on CT. We have no recent lipid panel will send him for fasting lipid panel. Discussed in detail heart healthy lifestyle to slow any further plaque build-up. Patient reports understandin. (2) Swelling: Code(s): R60.9 - Edema, unspecified Category: Medical Plan: Will check echo prior to next visit. Echo 05/2022 showed nomal LV systolic and diastolic function. Normal cardiac valvular doppler. Orders: Orders Basic Metabolic Panel Today I25.10 - Atherosclerotic heart disease of [place] coronary artery without angina pectoris CA echo transthoracic complete 5 Months I25.10 - Atherosclerotic heart disease of [place] coronary artery without angina pectoris, R60.9 - Edema, unspecified Lipid Panel Today I25.10 - Atherosclerotic heart disease of [place] coronary artery without angina pectoris Coding Level of Care Code Est Pt Level 3 (55864) Diagnoses CAD (coronary artery disease) I25.10 Swelling R60.9
== END 2024-04-05 14:05 | disposition home or self-care (01) ==
PROVIDERS: PCP Family Medicine; Visit Provider Nurse Practitioner
DX: I25.10 Atherosclerotic heart disease of native coronary artery without angina pectoris (principal); R60.9 Edema, unspecified
CPT/HCPCS: 99213

== ENCOUNTER → 2024-04-05 13:18 | Outpatient (BNVA) | payer MEDICAID, SELFPAY | PROVIDERS: PCP Family Medicine; Visit Provider Nurse Practitioner | DX: I25.10 Atherosclerotic heart disease of native coronary artery without angina pectoris (principal); R60.9 Edema, unspecified | CPT/HCPCS: 99212 ==

== ENCOUNTER 2024-04-22 12:51 | Outpatient (REF) | payer MEDICAID, SELFPAY ==
[2024-04-22 16:08] LABS: MANUAL DIFF FLAG NO
[2024-04-22 16:23] LABS: Basophils Absolute Auto 0.1 X10*3/uL (0.0-0.2); Basophils Percent Auto 1.3 % (0-2); Eosinophils Absolute Auto 0.4 X10*3/uL (0.0-0.4); Eosinophils Percent Auto 8.6 % (0-4); Hematocrit 44.9 % (42.0-52.0); Hemoglobin 15.1 g/dl (14.0-18.0); Imm Gran Abs Auto 0.01 X10*3/uL (0.00-0.03); Imm Gran Pct Auto 0.2 % (0.0-0.4); Lymphocytes Absolute Auto 2.3 X10*3/uL (1.2-4.9); Lymphocytes Percent Auto 50.3 % (20-40); Mean Corpuscular HGB Conc 33.6 g/dl (31.0-36.0); Mean Corpuscular Hemoglobin 29.2 pg (27.0-33.0); Mean Corpuscular Volume 86.8 fL (80.0-98.0); Mean Platelet Volume 12.4 fL (9.4-12.4); Monocytes Absolute Auto 0.5 X10*3/uL (0.1-1.2); Monocytes Percent Auto 10.8 % (2-11); Neutrophils Absolute Auto 1.3 x10*3/uL (2.0-8.3); Neutrophils Percent Auto 28.8 % (45-73); Platelet Count 223 X10*3/uL (160-400); Red Blood Count 5.17 X10*6/uL (4.60-5.80); Red Cell Distribution Width 13.4 % (11.0-16.0); White Blood Count 4.7 X10*3/uL (4.8-10.8)
[2024-04-22 16:40] LABS: Anion Gap 9 (12-20); Blood Urea Nitrogen 10 mg/dL (9-16); Calcium 9.4 mg/dL (8.4-10.2); Carbon Dioxide 32 mmol/L (22-29); Chloride 105 mmol/L (96-108); Estimated Glomerular Filt Rate > 60; Glucose Random 81 mg/dL (60-115); Potassium 4.7 mmol/L (3.3-5.1); Sodium 141 mmol/L (135-145)
[2024-04-22 16:56] LABS: TSH reflex Free T4 0.97 uIU/mL (0.32-4.0)
== END 2024-04-22 12:52 | disposition home or self-care (01) ==
LOC: HO.HHCL 12:51
PROVIDERS: Visit Provider Registered Nurse
DX: R53.82 Chronic fatigue, unspecified (principal); R53.81 Other malaise
CPT/HCPCS: 36415; 80048; 84443; 85025

== ENCOUNTER 2024-07-05 00:43 | Emergency (ER) | payer MEDICAID, SELFPAY ==
--- NOTE | 2024-07-05 | ECG_ITS ---
Test Reason : hypertension Blood Pressure : / mmHG Vent. Rate : 090 BPM Atrial Rate : 090 BPM P-R Int : 164 ms QRS Dur : 096 ms QT Int : 362 ms P-R-T Axes : 050 038 -14 degrees QTc Int : 442 ms Normal sinus rhythm Possible Inferior infarct , age undetermined Cannot rule out Anterior infarct , age undetermined Abnormal ECG No previous ECGs available Referred By: Generic ED Physician Electronically Signed By:Tong Liu
[2024-07-05 00:46] VITALS: BP 137/91; PULSE 90; RESP 20; TEMP 36.8; O2SAT 98; BMI 31.4
[2024-07-05 01:05] LABS: MANUAL DIFF FLAG NO
[2024-07-05 01:06] LABS: Basophils Absolute Auto 0.1 X10*3/uL (0.0-0.2); Basophils Percent Auto 0.6 % (0-2); Eosinophils Absolute Auto 0.5 X10*3/uL (0.0-0.4); Eosinophils Percent Auto 5.8 % (0-4); Hematocrit 39.5 % (42.0-52.0); Hemoglobin 13.7 g/dl (14.0-18.0); Imm Gran Abs Auto 0.01 X10*3/uL (0.00-0.03); Imm Gran Pct Auto 0.1 % (0.0-0.4); Lymphocytes Absolute Auto 2.8 X10*3/uL (1.2-4.9); Lymphocytes Percent Auto 35.2 % (20-40); Mean Corpuscular HGB Conc 34.7 g/dl (31.0-36.0); Mean Corpuscular Hemoglobin 29.7 pg (27.0-33.0); Mean Corpuscular Volume 85.7 fL (80.0-98.0); Mean Platelet Volume 10.8 fL (9.4-12.4); Monocytes Absolute Auto 0.6 X10*3/uL (0.1-1.2); Monocytes Percent Auto 7.4 % (2-11); Neutrophils Percent Auto 50.9 % (45-73); Platelet Count 231 X10*3/uL (160-400); Red Blood Count 4.61 X10*6/uL (4.60-5.80); White Blood Count 7.9 X10*3/uL (4.8-10.8)
[2024-07-05 01:18] LABS: Alanine Aminotransferase 43 U/L (0-40); Albumin Level 3.9 g/dL (3.5-5.0); Alkaline Phosphatase 146 U/L (39-117); Anion Gap 14 (12-20); Aspartate Amino Transferase 34 U/L (5-37); Bilirubin Total 0.3 mg/dL (0.0-1.0); Blood Urea Nitrogen 12 mg/dL (9-16); Calcium 8.9 mg/dL (8.4-10.2); Carbon Dioxide 25 mmol/L (22-29); Chloride 107 mmol/L (96-108); Creatinine Clr Calc Pharmacy 142.4; Estimated Glomerular Filt Rate > 60; Glucose Random 133 mg/dL (60-115); Potassium 3.6 mmol/L (3.3-5.1); Sodium 142 mmol/L (135-145)
[2024-07-05 03:40] VITALS: BP 128/84; PULSE 83; RESP 14; TEMP 36.7; O2SAT 97
[2024-07-05] MEDS: Amoxicillin/Potassium Clav 875 MG TABLET PO (05:14)
[2024-07-05] MEDS: Ibuprofen 600 MG TABLET PO (05:14)
[2024-07-05 05:21] VITALS: BP 141/94; PULSE 89
[2024-07-05 05:22] VITALS: BP 148/94; PULSE 91
[2024-07-05 05:23] VITALS: BP 144/94; PULSE 96
[2024-07-05 05:50] VITALS: BP 144/94; PULSE 96; RESP 16; TEMP 37; O2SAT 97
--- NOTE | 2024-07-10 17:17 | ED_ITS ---
HPI - General Adult General Chief complaint: General Medical Stated complaint: High BP? Time Seen by Provider: 07/05/24 04:24 Source: patient Mode of arrival: ambulatory Limitations: no limitations History of Present Illness ED Provider: luis ISLAS narrative: Patient complaining of right ear pain started just few hours prior to arrival checked his blood pressure was 137/107 with no history of hypotension repeat blood pressure in the ER was 137/91 no ear discharge no nausea vomiting Related Data Home Medications ?Medication ?Instructions ?Recorded ?Confirmed amitriptyline 50 mg tablet 50 mg PO BEDTIME 09/16/22 12/01/23 ascorbic acid (vitamin C) 500 mg 500 mg PO BID 09/16/22 12/01/23 tablet (Vitamin C) buprenorphine 8 mg-naloxone 2 mg 10 mg sublingual DAILY 09/16/22 12/01/23 sublingual film (Suboxone) [id number]-gacoutfettbvu-vbndfejn 1 - 2 tab PO Q6H PRN 09/16/22 12/01/23 50 mg-325 mg-40 mg tablet cholecalciferol (vitamin D3) 50 50 mcg PO DAILY 09/16/22 12/01/23 mcg (2,000 unit) tablet omeprazole 20 mg capsule,delayed 20 mg PO QAM 09/16/22 12/01/23 release fluticasone propionate 50 1 spray intranasal DAILY 01/16/23 12/01/23 mcg/actuation nasal spray,suspension Previous Rx's ?Medication ?Instructions ?Recorded cyclobenzaprine 5 mg tablet 5 - 10 mg (1 - 2 x 5 mg) PO TID 07/29/20 PRN muscle spasm #20 tabs ibuprofen 600 mg tablet 600 mg PO Q6H PRN pain #20 tabs 07/29/20 naproxen 500 mg tablet 500 mg PO Q8-12H PRN pain (scale 08/29/23 score 4-6) #14 tabs prednisone 50 mg tablet 50 mg PO DAILY 5 days #5 tabs 08/29/23 amoxicillin 875 mg-potassium 1 tab PO BID #20 tabs 07/05/24 clavulanate 125 mg tablet ibuprofen 600 mg tablet 600 mg PO Q6H PRN fever or pain 07/05/24 #30 tabs Allergies Allergy/AdvReac Type Severity Reaction Status Date / Time topiramate [From TOPAMAX] Allergy Unknown SENSATION Verified 07/05/24 19:53 OF PINS AND NEEDLES IN HANDS Review of Systems 2 Review of Systems: Yes all other systems are reviewed and are negative [facility] Past Medical History Medical History Swelling CAD (coronary artery disease) Migraines Surgical History No pertinent past surgical history Family History Family History Father Heart problem Social History Social History Unable to assess alcohol history related to: Unknown Patient Tobacco Use Status: Former Tobacco user Current occupational status: unemployed Current occupation: left handed Physical Exam ED Vital Signs: BMI result Body Mass Index 31.4 Appearance: Alert. Oriented X3. No acute distress. ENT: Pharynx normal. Oral Mucosa moist right tympanic membrane inflamed erythematous fluid behind the drums normal mastoid Neck: Normal inspection. Neck supple. CVS: Normal heart rate and rhythm. Pulses normal. Respiratory: No respiratory distress. Equal air entry bilateral, no wheezing/rales/rhonchi Skin: Skin warm and dry. Normal skin color. Normal skin turgor. Extremities: No lower extremity edema. Neuro: Oriented X 3. Medications Administered Discontinued Medications Generic Name Dose Route Start Last Admin Trade Name Freq PRN Reason Stop Dose Admin Amoxicillin/Clavulanate Potassium 875 mg 07/05/24 04:58 07/05/24 05:14 Amoxicillin/Potassium Clav 875 Mg Tablet PO 07/05/24 04:59 875 mg ONCE ONE Administration Ibuprofen 600 mg 07/05/24 04:58 07/05/24 05:14 Ibuprofen 600 Mg Tablet PO 07/05/24 04:59 600 mg ONCE ONE Administration Medical Decision Making Medical Decision Making MDM Narrative: Patient with otitis media causing the pain in right side of the head in the ER will prescribe Augmentin Lab Data 07/05/24 01:01 07/05/24 01:01 Labs: Lab Results 07/05/24 Range/Units 01:01 WBC 7.9 (4.8-10.8) X10*3/uL RBC 4.61 (4.60-5.80) X10*6/uL Hgb 13.7 L (14.0-18.0) g/dl Hct 39.5 L (42.0-52.0) % MCV 85.7 (80.0-98.0) fL MCH 29.7 (27.0-33.0) pg MCHC 34.7 (31.0-36.0) g/dl RDW 13.0 (11.0-16.0) % Plt Count 231 (160-400) X10*3/uL MPV 10.8 (9.4-12.4) fL Immature Gran % (Auto) 0.1 (0.0-0.4) % Neut % (Auto) 50.9 (45-73) % Lymph % (Auto) 35.2 (20-40) % Routt % (Auto) 7.4 (2-11) % Eos % (Auto) 5.8 H (0-4) % Baso % (Auto) 0.6 (0-2) % Lymph # (Auto) 2.8 (1.2-4.9) X10*3/uL [place]t # (Auto) 0.6 (0.1-1.2) X10*3/uL Eos # (Auto) 0.5 H (0.0-0.4) X10*3/uL Baso # (Auto) 0.1 (0.0-0.2) X10*3/uL Abs Immat Gran (auto) 0.01 (0.00-0.03) X10*3/uL Absolute Neuts (auto) 4.0 (2.0-8.3) x10*3/uL Absolute Nucleated RBC 0.000 (0.0-0.012) X10*3/uL Nucleated RBC % (auto) 0.0 (0.0-0.2) /100WBC Sodium 142 (135-145) mmol/L Potassium 3.6 D (3.3-5.1) mmol/L Chloride 107 (96-108) mmol/L Carbon Dioxide 25 (22-29) mmol/L Anion Gap 14 (12-20) BUN 12 (9-16) mg/dL Creatinine 0.78 (0.5-1.4) mg/dL Estim Creat Clear Calc 142.4 Estimated GFR > 60 Random Glucose 133 H (60-115) mg/dL Calcium 8.9 (8.4-10.2) mg/dL Total Bilirubin 0.3 (0.0-1.0) mg/dL AST 34 (5-37) U/L ALT 43 H (0-40) U/L Alkaline Phosphatase 146 H (39-117) U/L Total Protein 7.0 (6.5-8.0) g/dL Albumin 3.9 (3.5-5.0) g/dL Discharge Plan Discharge Clinical Impression: Acute right otitis media Patient Disposition: Home, Self-Care Instructions: Ear Infection (ED) Additional Instructions: Take antibiotics as prescribed Ibuprofen for pain Follow with your PCP as needed Prescriptions: New ibuprofen 600 mg tablet 600 mg PO Q6H PRN (Reason: fever or pain) Qty: 30 0RF amoxicillin-pot clavulanate 875-125 mg tablet 1 tab PO BID Qty: 20 0RF No Action ibuprofen 600 mg tablet 600 mg PO Q6H PRN (Reason: pain) Qty: 20 0RF cyclobenzaprine 5 mg tablet 5 - 10 mg PO TID PRN (Reason: muscle spasm) Qty: 20 0RF Rx Instructions: Take 1 or 2 tablets every 8 hours as needed for muscle spasm, this medication causes drowsiness so no driving for 8 hours after taking naproxen 500 mg tablet 500 mg PO Q8-12H PRN (Reason: pain (scale score 4-6)) Qty: 14 0RF prednisone 50 mg tablet 50 mg PO DAILY 5 Days Qty: 5 0RF omeprazole 20 mg capsule,delayed release(DR/EC) 20 mg PO QAM buprenorphine-naloxone [Suboxone] 8-2 mg film 10 mg sublingual DAILY amitriptyline 50 mg tablet 50 mg PO BEDTIME [id number]-cdnkyfdxwgvxy-ljix 50-325-40 mg tablet 1 - 2 tab PO Q6H PRN ascorbic acid (vitamin C) [Vitamin C] 500 mg tablet 500 mg PO BID cholecalciferol (vitamin D3) 50 mcg (2,000 unit) tablet 50 mcg PO DAILY fluticasone propionate 50 mcg/actuation spray,suspension 1 spray intranasal DAILY Interventions: ED Discharge Assessment Last Done: 07/05/24 05:50 Discharge Date/Time: 07/05/24 05:52 Print Language: Belarusian
== END 2024-07-05 05:52 | disposition home or self-care (01) ==
PROVIDERS: Emergency Provider Internal Medicine; PCP Family Medicine
DX: H66.91 Otitis media, unspecified, right ear (principal); R94.31 Abnormal electrocardiogram [ECG] [EKG]; Z79.899 Other long term (current) drug therapy
CPT/HCPCS: 36415; 80053; 85025; 93005; 99283; 99284

== ENCOUNTER → 2024-07-05 00:50 | Outpatient (BNV) | payer MEDICAID, SELFPAY | PROVIDERS: Emergency Provider Internal Medicine; PCP Family Medicine; Visit Provider Internal Medicine Cardiovascular Disease | DX: R94.31 Abnormal electrocardiogram [ECG] [EKG] (principal) | CPT/HCPCS: 93010 ==

== ENCOUNTER 2024-07-05 19:15 | Emergency (ER) | payer MEDICAID, SELFPAY ==
[2024-07-05 19:52] VITALS: BP 123/82; PULSE 96; RESP 16; TEMP 36.9; O2SAT 96; BMI 31.6
--- NOTE | 2024-07-05 20:00 | ED_ITS ---
HPI - Ear Problem General Chief complaint: Ear Problems Stated complaint: Bleeding from R ear Time Seen by Provider: 07/05/24 22:06 Source: patient Mode of arrival: ambulatory Limitations: no limitations History of Present Illness ED Provider: luis ISLAS Narrative: Patient with History of otitis media was seen here yesterday taking Augmentin today noticed small amount of blood in the right EAC pain is getting better no trauma not on any anticoagulant no headache Related Data Home Medications ?Medication ?Instructions ?Recorded ?Confirmed amitriptyline 50 mg tablet 50 mg PO BEDTIME 09/16/22 12/01/23 ascorbic acid (vitamin C) 500 mg 500 mg PO BID 09/16/22 12/01/23 tablet (Vitamin C) buprenorphine 8 mg-naloxone 2 mg 10 mg sublingual DAILY 09/16/22 12/01/23 sublingual film (Suboxone) [id number]-uyhluaidsopie-nidmlhyu 1 - 2 tab PO Q6H PRN 09/16/22 12/01/23 50 mg-325 mg-40 mg tablet cholecalciferol (vitamin D3) 50 50 mcg PO DAILY 09/16/22 12/01/23 mcg (2,000 unit) tablet omeprazole 20 mg capsule,delayed 20 mg PO QAM 09/16/22 12/01/23 release fluticasone propionate 50 1 spray intranasal DAILY 01/16/23 12/01/23 mcg/actuation nasal spray,suspension Previous Rx's ?Medication ?Instructions ?Recorded cyclobenzaprine 5 mg tablet 5 - 10 mg (1 - 2 x 5 mg) PO TID 07/29/20 PRN muscle spasm #20 tabs ibuprofen 600 mg tablet 600 mg PO Q6H PRN pain #20 tabs 07/29/20 naproxen 500 mg tablet 500 mg PO Q8-12H PRN pain (scale 08/29/23 score 4-6) #14 tabs prednisone 50 mg tablet 50 mg PO DAILY 5 days #5 tabs 08/29/23 amoxicillin 875 mg-potassium 1 tab PO BID #20 tabs 07/05/24 clavulanate 125 mg tablet ibuprofen 600 mg tablet 600 mg PO Q6H PRN fever or pain 07/05/24 #30 tabs Allergies Allergy/AdvReac Type Severity Reaction Status Date / Time topiramate [From TOPAMAX] Allergy Unknown SENSATION Verified 07/05/24 19:53 OF PINS AND NEEDLES IN HANDS Review of Systems Review of Systems: Yes all other systems are reviewed and are negative [facility] Past Medical History Medical History Swelling CAD (coronary artery disease) Migraines Surgical History No pertinent past surgical history Family History Family History Father Heart problem Social History Social History Unable to assess alcohol history related to: Unknown Patient Tobacco Use Status: Former Tobacco user Current occupational status: unemployed Current occupation: left handed Physical Exam Vital Signs: Vital Signs: Last Vital Signs Temp 98.5 F 07/05/24 22:49 Pulse 96 07/05/24 22:49 Resp 16 07/05/24 22:49 BP 123/82 07/05/24 22:49 Pulse Ox 96 07/05/24 22:49 O2 Del Method Room Air 07/05/24 22:49 BMI result Body Mass Index 31.6 Appearance: Alert. Oriented X3. No acute distress. ENT: Pharynx normal. Oral Mucosa moist right tympanic membrane inflamed with small amount of blood behind no perforation was seen bus small amount of blood was seen in the r EAC Neck: Normal inspection. Neck supple. CVS: Normal heart rate and rhythm. Pulses normal. Respiratory: No respiratory distress. Equal air entry bilateral, no wheezing/rales/rhonchi Skin: Skin warm and dry. Normal skin color. Normal skin turgor. Course Course Course Narrative: This is a rapid medical exam performed by Sobia Auguste PA-C. The patient is a 48-year-old male, who was seen here in the emergency department this morning, treated for otitis media. Who presents with bleeding from the right ear. Patient states he developed excruciating pain in the right ear today, followed by a flow of blood from the ear. Reduced hearing noted. On exam, I see bright red blood in the external ear canal it is not pulsatile, the TM itself appears dark and dull, I cannot visualize the ossicles. I believe the patient will require imaging. He just had lab studies completed, I will not repeat labs at this time. The patient can return to the waiting room pending his complete assessment. Medical Decision Making Medical Decision Making MDM Narrative: Patient with blood in the R EAC likely from perforation of the right arm no exact perforation was seen will advised to continue Augmentin and follow up with ENT after the course of antibiotics Discharge Plan Discharge Clinical Impression: Acute right otitis media Patient Disposition: Home, Self-Care Instructions: Ear Infection (ED) Additional Instructions: Continue antibiotic as prescribed and follow with ENT specialist Report to ER if increased headache Possible you have small perforation of the drum on the right side Prescriptions: No Action ibuprofen 600 mg tablet 600 mg PO Q6H PRN (Reason: pain) Qty: 20 0RF cyclobenzaprine 5 mg tablet 5 - 10 mg PO TID PRN (Reason: muscle spasm) Qty: 20 0RF Rx Instructions: Take 1 or 2 tablets every 8 hours as needed for muscle spasm, this medication causes drowsiness so no driving for 8 hours after taking naproxen 500 mg tablet 500 mg PO Q8-12H PRN (Reason: pain (scale score 4-6)) Qty: 14 0RF prednisone 50 mg tablet 50 mg PO DAILY 5 Days Qty: 5 0RF ibuprofen 600 mg tablet 600 mg PO Q6H PRN (Reason: fever or pain) Qty: 30 0RF amoxicillin-pot clavulanate 875-125 mg tablet 1 tab PO BID Qty: 20 0RF omeprazole 20 mg capsule,delayed release(DR/EC) 20 mg PO QAM buprenorphine-naloxone [Suboxone] 8-2 mg film 10 mg sublingual DAILY amitriptyline 50 mg tablet 50 mg PO BEDTIME [id number]-easdizqcoyqae-tyvh 50-325-40 mg tablet 1 - 2 tab PO Q6H PRN ascorbic acid (vitamin C) [Vitamin C] 500 mg tablet 500 mg PO BID cholecalciferol (vitamin D3) 50 mcg (2,000 unit) tablet 50 mcg PO DAILY fluticasone propionate 50 mcg/actuation spray,suspension 1 spray intranasal DAILY Referrals: Rodriguez Arnold [Physician] - 1 week Interventions: ED Discharge Assessment Last Done: 07/05/24 22:49 Discharge Date/Time: 07/05/24 22:50 Print Language: [place]an
[2024-07-05 22:49] VITALS: BP 123/82; PULSE 96; RESP 16; TEMP 36.9; O2SAT 96
== END 2024-07-05 22:50 | disposition home or self-care (01) ==
PROVIDERS: Emergency Provider Internal Medicine; PCP Family Medicine
DX: H66.91 Otitis media, unspecified, right ear (principal); Z79.899 Other long term (current) drug therapy
CPT/HCPCS: 99283; 99284

== ENCOUNTER → 2024-07-07 10:57 | Outpatient (REF) | payer MEDICAID, SELFPAY | LOC: HO.SL 10:57 | PROVIDERS: PCP Family Medicine; Visit Provider Family Medicine | DX: G47.33 Obstructive sleep apnea (adult) (pediatric) (principal) | CPT/HCPCS: 95806 ==

== ENCOUNTER → 2024-07-08 19:00 | Outpatient (BNV) | payer MEDICAID, SELFPAY | PROVIDERS: PCP Family Medicine; Visit Provider Psychiatry & Neurology Neurology | DX: G47.33 Obstructive sleep apnea (adult) (pediatric) (principal) | CPT/HCPCS: 95806 ==

== ENCOUNTER 2024-09-01 13:11 | Outpatient (REF) | payer MEDICAID, SELFPAY ==
--- OUTSIDE RECORDS SUMMARY | 2024-09-01 13:14 | XMS_ITS | Data Portability ---
Author Organization [place] - [facility], Allergy Address [address] [place] [address] Care Team Providers Care Sticker On Name Role Phone JESSICA YEBOAH Referring Provider Assessment Encounter Date Assessment Date Assessment LastModified by Organization Details LastModified Time 08/15/2024 08/15/2024 Patient likely experienced right-sided acute otitis media last month. His examination today shows serous effusion with air bubbles on the right middle ear. I would anticipate his decreased hearing to continue to improve as the effusion resolves further. He does not have a history of chronic infections. No specific new intervention is recommended. He may follow-up as needed [email or web address] Not available 08/15/2024 09:48:42 Plan of Treatment Reminders Order Date Submit Date Provider Last Modified By Organization Details Last Modified Time Details Appointments None record ed. Lab None record ed. Referral None record ed. Procedures None record ed. Surgeries None record ed. Imaging None record ed. Medication Orders None record ed. Patient TargetsNo targets recorded. Patient InstructionsNo instructions recorded. Reason for Referral None Reported. Problems Name Problem SNOMED Code Status Onset Date Resolution Date Notes Provider Name and Address Organization Details Recorded Time Bilateral disorder of Eustachia n tubes 49610136161 85007 Active 2022 Other specified disorders of Eustachia n tube, bilateral ; Note: Date Diagnosed : 01/23/2023 3:21 PM (H69.83) Not Available [facility] 4 03:25:27 Migraine 21545489 Active 2022 Other migraine, not intractab le, without status migrainos us; Note: Date Diagnosed : 01/23/2023 3:47 PM (G43.809) Not Available [facility] 4 03:25:27 Otalgia of left ear 0636638718 Active 2022 Otalgia, left ear; Note: Date Diagnosed : 01/23/2023 3:22 PM (H92.02) Not Available [facility] 4 03:25:27 Acute non-suppu rative otitis media of right ear 62695727771 63997 Active 2023 MAURA BARBER MD [address] [place] [address], [place], [address] , [facility] - [facility] 4 09:48:03 Problem Notes None recorded. Medical Equipment None Reported. Allergies Allergen ID Allergen Name Allergen Category Reaction Reaction Severity Criticality Documentation Date Start Date Code Code System Note Provider Name and Address Organization Details Recorded Time 93093 Topamax medicatio n other Not available Not available 01/26/2024 21764 3 RxNorm React ion: Unkno wn; Not Available [facility] 4 00:48:43 Medications Name Sig Start Date Stop Date Status Note LastModified by Organization Details LastModified Time Mag-G 27 mg magnesium (500 mg) tablet TAKE 1 TABLET BY MOUTH TWICE DAILY active Not Available Not Available No t Available Vitamin C 500 mg tablet TAKE 1 TABLET BY MOUTH EVERY DAY active Not Available Not Available No t Available ofloxacin 0.3 % eye drops INSTILL 1 DROP IN EACH EYE FOUR TIMES DAILY FOR 7 DAYS 08/15 completed Not Available Not Available Not Available omeprazol e 40 mg capsule,d elayed release TAKE 1 CAPSULE BY MOUTH EVERY DAY BEFORE BREAKFAS T, DO NOT BREAK, CRUSH, DISSOLVE OR CHEW active Not Available Not Available No t Available butalbita l-acetami nophen-ca ffeine 50 mg-325 mg-40 mg tablet active Medicati on ID: [id number] B rand Name: butalbit al-aceta minophen -caff Se nd Method: E-Prescr ibed Sub s Allowed: subs OK Speci al Instruct ion: TAKE 1 TO 2 TABLETS BY MOUTH EVERY 6 HOURS NEEDED NO MORE THAN 6 TABLETS PER 24 HOURS Me dication GenericN jan: butalbit al-aceta minophen -caff Not Available Not Available Not Available amitripty line 25 mg tablet TAKE 1 TABLET BY MOUTH AT BEDTIME active Not Available Not Available No t Available clotrimaz ole-betam ethasone 1 %-0.05 % topical cream APPLY TOPICALL Y TO AFFECTED AREA(S) TWICE DAILY 08/15 completed Not Available Not Available Not Available prednison e 50 mg tablet TAKE 1 TABLET BY MOUTH EVERY DAY FOR 5 DAYS 08/15 completed Not Available Not Available Not Available ibuprofen 400 mg tablet TAKE 1 TABLET BY MOUTH EVERY 8 HOURS NEEDED FOR PAIN active Not Available Not Available No t Available gabapenti n 300 mg capsule TAKE 1 CAPSULE BY MOUTH THREE TIMES DAILY active Not Available Not Available No t Available omeprazol e 20 mg capsule,d elayed release 08/15 completed Medicati on ID: [id number] B rand Name: omeprazo le Send Method: E-Prescr ibed Sub s Allowed: subs CYNDIE Speci al Instruct ion: TAKE 1 CAPSULE BY MOUTH EVERY MORNING Medicati onGeneri cName: omeprazo le Not Available Not Available Not Available ibuprofen 600 mg tablet TAKE 1 TABLET BY MOUTH EVERY 6 HOURS NEEDED FOR PAIN OR FOR FEVER active Not Available Not Available No t Available fluoxetin e 20 mg capsule active Medicati on ID: [id number] B rand Name: fluoxeti ne Send Method: E-Prescr ibed Sub s Allowed: subs CYNDIE Recio al Instruct ion: TAKE 1 CAPSULE BY MOUTH EVERY DAY Medi cationGe nericNam e: fluoxeti ne Not Available Not Available Not Available naproxen 500 mg tablet TAKE 1 TABLET BY MOUTH EVERY 8 TO 12 HOURS NEEDED FOR PAIN (SCALE SCORE 4-6) 08/15 completed Not Available Not Available Not Available amoxicill in 875 mg-potass ium clavulana te 125 mg tablet TAKE 1 TABLET BY MOUTH TWICE A DAY 08/15 completed Not Available Not Available Not Available Ventolin HFA 90 mcg/actua tion aerosol inhaler INHALE 2 PUFFS EVERY 6 HOURS IF NEEDED FOR WHEEZING . active Not Available Not Available No t Available bupropion HCl XL 150 mg 24 hr tablet, extended release TAKE 1 TABLET BY MOUTH EVERY MORNING DO NOT BREAK, CRUSH, DISSOLVE OR CHEW active Not Available Not Available No t Available Stool Softener- Stimulant Laxative 8.6 mg-50 mg tablet TAKE 2 TABLETS BY MOUTH EVERY MORNING active Not Available Not Available No t Available cholecalc iferol (vitamin D3) 50 mcg (2,000 unit) tablet TAKE 1 TABLET BY MOUTH DAILY IN THE MORNING active Not Available Not Available No t Available Gavilax 17 gram/dose oral powder TAKE 17 GM MIXED IN 8 OUNCES OF WATER, COFFEE OR TEA ONCE DAILY IN THE MORNING active Not Available Not Available No t Available Suboxone 8 mg-2 mg sublingua l film DISSOLVE 1 FILM UNDER THE TONGUE DAILY active Not Available Not Available No t Available Suboxone 2 mg-0.5 mg sublingua l film DISSOLVE 1 FILM UNDER THE TONGUE DAILY active Not Available Not Available No t Available Asmanex HFA 50 mcg/actua tion aerosol inhaler INHALE 2 PUFFS BY MOUTH TWICE DAILY IN THE MORNING AND AT BEDTIME RINSE MOUTH AFTER USING. 08/15 completed Not Available Not Available Not Available Paxlovid 300 mg (150 mg x 2)-100 mg tablets in a dose pack TAKE 2 TABLETS (300 MG) OF NIRMATRE LVIR & 1 TABLET (100 MG) OF RITONAVI R BY MOUTH TWICE DAILY FOR 5 DAYS 08/15 completed Not Available Not Available Not Available Vitals None Recorded Social History None recorded. Functional Status None recorded. Mental Status None recorded. Family History Nothing Reported. Medical History No medical history recorded. Past Encounters Encounter ID Performer Location Encounter Start Date Encounter Closed Date Diagnosis/Indication Diagnosis SNOMED-CT Code Diagnosis ICD10 Code [id number] MAURA BARBER MD [facility] [address] [address] 08/15/2024 09:11:12 08/15/2024 09:50:26 Acute non-suppurative otitis media of right ear [id number] 937218 H65.191 Health Concerns Section Related Observation LastModified by Organization Detai ls LastModified Time None Recorded Concern Status LastModified by Organization Details LastModified Time None Recorded Advance Directives Directive None Recorded Payers Encounter Date Sequence Insurance Name Policy Number Policy Greer Covered Member ID Greer Member ID Guarantor Name 08/15/2024 1 [place] [facility] Hudson Atkins [id number] Hudson Atkins Notes Date Note Type Note Provider Name and Address Organization Details Recorded Time 08/15/2024 text/html 06/2024 ER visit for Right ear achewas rx oral abx then developed bloody otorrhea right side and decrease hearingno hx of prior chronic ear infections PV 01/23/23 Linda - tinnitus, poor sleep. symptoms of vestibular migraine MAURA BARBER MD [address] [place] [address], [place], [address], [facility] - [facility] 08/15/2024 09:49:03
--- OUTSIDE RECORDS SUMMARY | 2024-09-01 13:14 | XMS_ITS | Continuity of Care Document ---
Author Organization [place] - [facility], [facility] Address [address] [place] [address] Care Team Providers Care Building And Construction Manager Name Role Phone JESSICA YEBOAH Referring Provider [...] Time Bilateral disorder of Eustachia n tubes [id number] 65664 Active 2022 Other specified disorders of Eustachia n tube, bilateral ; Note: Date Diagnosed : 01/23/2023 3:21 PM (H69.83) Not Available [facility] 03:25:27 Migraine 00479563 Active 2022 Other migraine, not intractab le, without status migrainos us; Note: Date Diagnosed : 01/23/2023 3:47 PM (G43.809) Not Available [facility] 4 03:25:27 Otalgia of left ear 0328049013 Active 2022 Otalgia, left ear; Note: Date Diagnosed : 01/23/2023 3:22 PM (H92.02) Not Available [facility] 4 03:25:27 Acute non-suppu rative otitis media of right ear 40513099327 38923 Active 2023 MAURA BARBER MD [address] [place] [address], [facility] [place], [address] [facility] 4 09:48:03 Problem Notes None recorded. Medical Equipment None Reported. Allergies Allergen ID Allergen Name Allergen Category Reaction Reaction Severity Criticality Documentation Date Start Date Code Code System Note Provider Name and Address Organization Details Recorded Time 32977 Topamax medicatio n other Not available Not available 01/26/2024 90499 3 RxNorm React ion: Unkno wn; Not Available [facility] 4 00:48:43 Medications Name Sig Start Date [...] mg-40 mg tablet active Medicati on ID: [id number] B rand Name: butalbit al-aceta minophen -caff [...] elayed release 08/15 completed Medicati on ID: [id number] B rand Name: omeprazo le Send Method: [...] 20 mg capsule active Medicati on ID: [id number] B rand Name: fluoxeti ne Send Method: [...] Diagnosis/Indication Diagnosis SNOMED-CT Code Diagnosis ICD10 Code [id number] MAURA BARBER MD [facility] [address] [address] 08/15/2024 09:11:12 08/15/2024 09:50:26 Acute non-suppurative otitis media of right ear [id number] 135355 H65.191 Health Concerns Section Related Observation LastModified by Organization Detai ls LastModified Time None Recorded Concern Status LastModified by Organization Details LastModified Time None Recorded Payers Encounter Date Sequence Insurance Name Policy Number Policy Greer Covered Member ID Greer Member ID Guarantor Name 08/15/2024 1 [place] [facility] Hudson Atkins [id number] Hudson Atkins Notes Date Note Type Note Provider Name and Address Organization Details Recorded Time 08/15/2024 text/html 06/2024 ER visit for Right ear achewas rx oral abx then developed bloody otorrhea right side and decrease hearingno hx of prior chronic ear infections PV 01/23/23 Linda - tinnitus, poor sleep. symptoms of vestibular migraine MAURA BARBER MD [address] [place] [address], [place], [address], [facility] - [facility] 08/15/2024 09:49:03
--- NOTE | 2024-09-01 13:15 | EMG_ITS ---
Chief complaint: Bilateral feet numbness since 4 years ago after taya COVID, random episodes Reason for referral: Evaluate for neuropathy Referred by: Dr. Kellogg Procedure done: Bilateral lower extremity NCS/EMG Precautions and/or limitations: None The limb temperature was monitored continuously and remained between 32-36 degrees C during the performance of the NCS. Nerve Conduction Studies Anti Sensory Summary Table ?Stim Site NR Onset (ms) Norm Onset (ms) Peak (ms) Norm Peak (ms) O-P Amp (?V) Norm O-P Amp Site1 Site2 Delta-0 (ms) Dist (cm) Froilan (m/s) Norm Froilan (m/s) Left Sural Anti Sensory (Lat Mall) Calf ? 0.3 2.4 <4.0 51.3 >5.0 Calf Lat Mall 0.3 14.0 467 Right Sural Anti Sensory (Lat Mall) Calf ? 0.9 3.7 <4.0 7.6 >5.0 Calf Lat Mall 0.9 14.0 156 Motor Summary Table ?Stim Site NR Onset (ms) Norm Onset (ms) O-P Amp (mV) Norm O-P Amp iAmp (mV) Amp (1st) (%) Site1 Site2 Delta-0 (ms) Dist (cm) Froilan (m/s) Norm Froilan (m/s) Right Peroneal Motor (Ext Dig Brev) Ankle ? 4.0 <4.0 3.0 >2.5 3.5 100.0 Ankle Ext Dig Brev 4.0 0.0 B Fib ? 11.1 2.6 2.8 86.7 B Fib Ankle 7.1 33.5 47 >40 Poplt ? 12.3 2.6 2.7 86.7 Poplt B Fib 1.2 6.0 50 >40 Left Tibial Motor (Abd Howard Brev) Ankle ? 3.8 <5 6.0 >2.5 8.6 100.0 Ankle Abd Howard Brev 3.8 0.0 Knee ? 13.2 3.0 5.0 50.0 Knee Ankle 9.4 42.0 45 >40 Right Tibial Motor (Abd Howard Brev) Ankle ? 4.1 <5 6.9 >2.5 10.0 100.0 Ankle Abd Howard Brev 4.1 0.0 Knee ? 12.7 3.6 5.6 52.2 Knee Ankle 8.6 44.0 51 >40 EMG ?Side Muscle Nerve Root Ins Act Fibs Psw Amp Dur Poly Recrt Int Pat Comment Right AbdHallucis MedPlantar S1-2 Nml Nml Nml Nml Nml 0 Nml Complete Right AntTibialis Dp Br Peron L4-5 Nml Nml Nml Nml Nml 0 Nml Complete Right PostTibialis Tibial L5, S1 Nml Nml Nml Nml Nml 0 Nml Complete Right MedGastroc Tibial S1-2 Nml Nml Nml Nml Nml 0 Nml Complete Right VastusMed Femoral L2-4 Nml Nml Nml Nml Nml 0 Nml Complete Left AbdHallucis MedPlantar S1-2 Nml Nml Nml Nml Nml 0 Nml Complete Left AntTibialis Dp Br Peron L4-5 Nml Nml Nml Nml Nml 0 Nml Complete Left PostTibialis Tibial L5, S1 Nml Nml Nml Nml Nml 0 Nml Complete Left MedGastroc Tibial S1-2 Nml Nml Nml Nml Nml 0 Nml Complete Left VastusMed Femoral L2-4 Nml Nml Nml Nml Nml 0 Nml Complete FINDINGS: All motor and sensory nerves tested showed normal latencies, amplitudes and conduction velocities. Concentric needle EMG was performed in selected muscles of the bilateral lower extremity. Study did not reveal signs of electric abnormalities as shown in the table above. IMPRESSION: 1. This is a normal study. 2. There is no electrodiagnostic evidence for peroneal neuropathy, tibial neuropathy, lumbosacral plexopathy, lumbar radiculopathy, or peripheral neuropathy. Thank you for your kind referral. Arlene Thomas MD, [facility] Board Certified, [place] Board of Physical Medicine and Rehabilitation (ABPMR) Board Certified, [place] Board of Electrodiagnostic Medicine (ABEM) CODIN 43579 x 2 MTDD
== END 2024-09-01 13:12 | disposition home or self-care (01) ==
LOC: HO.NEURO 13:11
PROVIDERS: PCP Family Medicine; Visit Provider Family Medicine
DX: G62.9 Polyneuropathy, unspecified (principal)
CPT/HCPCS: 95886; 95909

== ENCOUNTER → 2024-09-01 13:15 | Outpatient (BNV) | payer MEDICAID, SELFPAY | PROVIDERS: PCP Family Medicine; Visit Provider Physical Medicine & Rehabilitation | DX: R20.0 Anesthesia of skin (principal); R20.2 Paresthesia of skin | CPT/HCPCS: 95886; 95909 ==

== ENCOUNTER → 2024-09-02 08:50 | Outpatient (REF) | payer MEDICAID, SELFPAY ==
--- NOTE | 2024-09-02 08:54 | CA_ITS ---
Transthoracic Echocardiogram Patient (Last, First, Middle): Hudson Atkins, Gender: Male Date of : 1975 Age: 49 Procedure Date: 09/02/2024 Procedure Type: Transthoracic Echocardiogram Location: OP Height: 180.34 cm Weight: 102.06 kg BSA: 2.22 m2 Heart Rate: bpm BP: 132 / 80 mmHg Retread Technician: Referring MD: Yolande Dennis NP Symptoms: I25.10 - Atherosclerotic heart disease of [place] coronary artery without... Study Quality: Good ECG Rhythm: Sinus Conclusions: - The left ventricular systolic function is normal. The calculated ejection fraction is 66% by biplane method. - No obvious valvular pathology seen on this study. Findings Procedure Information Contrast agent, definity, is being given per protocol without apparent complications. Left Ventricle Normal left ventricular cavity size. There is normal left ventricular wall thickness. The left ventricular systolic function is normal. The calculated ejection fraction is 66% by biplane method. There is no evidence of regional wall motion abnormalities. Diastolic function is normal for age. There is mild septal asymmetric hypertrophy. Right Ventricle Normal right ventricular cavity size and systolic function. Atria Both atria are normal in size. Aortic Valve There is a normal trileaflet aortic valve. There is no aortic valve stenosis. There is no aortic valve regurgitation. Mitral Valve The mitral valve appears normal. There is no mitral valve regurgitation. There is no mitral valve stenosis. Pulmonic Valve The pulmonic valve is likely normal. Tricuspid Valve Normal tricuspid valve structure. There is trace tricuspid valve regurgitation. There is no evidence of pulmonary hypertension. Great Vessels The asc aorta is normal in size. Venous The inferior vena cava is normal in size and collapses greater than 50% with inspiration. Pericardium/Pleural There is no evidence of pericardial effusion. Prior Study Comparison No significant change compared to prior study dated: 09/04/2023. Recommendations, Care & Conclusions No obvious valvular pathology seen on this study. Measurements 2D Linear Measurements IVSd: 1.29 0.6-0.9/0.6-1.0 cm LVIDd: 4.19 3.9-5.3/4.2-5.9 cm LVIDd Index: 1.89 2.4-3.2/2.2-3.1 cm/m2 LVIDs: 2.48 2.0-3.6 cm LVPWd: 1.24 0.7-1.1 cm Ao Root: 3.40 2.1-3.5 cm LA Diam: 3.70 2.7-3.8/3.0-4.0 cm LAIDs Index: 1.67 1.5-2.3 cm/m2 LV Mass: 239.10 67-162/88-224 g LV Mass Index: 107.70 43-95/49-115 g/m2 LVOT Diam: 2.30 3.0+(-)1.3 cm 2D Systolic Function EF 4C: 65.40 >55% EF 2C: 63.80 >55% EF BiP: 65.80 >55% Mitral Valve MV Pk E: 0.76 MV PK A: 0.82 MV Decel Time: 175.00 E/A: 0.90 E'Lateral: 8.59 E'Medial: 5.66 E/E' Med: 13.40 E/E' Lat: 8.80 PHT: 51.00 MVA PHT: 4.31 Decel [place]: 4.34 Aortic Valve AoV Pk Froilan: 1.17 AoV Pk Grad: 5.00 LVOT LVOT Pk Froilan: 1.07 LVOT Mn Froilan: 0.64 LVOT VTI: 0.22 LVOT Pk Grad: 5.00 LVOT Mn Grad: 2.00 LVOT Diam: 2.30 LVOT Area: 4.15 Diastolic Function MV Pk E: 0.76 MV Pk A: 0.82 E/A: 0.90 E'Medial: 5.66 E/E' Med: 13.40 E' Laterial: 8.59 E/E' Lat: 8.80 Tricuspid Valve TR Pk Froilan: 2.27 TR Pk Grad: 21.00 RA Press: 3.00 RVSP: 24.00 Great Vessels Aorta Ao Root-2D: 3.40 2.0-3.7 cm Ao Asc: 3.00 2.1-3.4 cm Pulmonary Valve PV Pk Froilan: 0.84 Peak PV Grad: 3.00 Updated in Other Vendor System with Status of Final Yon Moreira MD electronically signed on 09/03/2024 2:23:14 PM with status of Final
== END ==
LOC: HO.CARD 08:50
PROVIDERS: PCP Family Medicine; Visit Provider Nurse Practitioner
DX: I25.10 Atherosclerotic heart disease of native coronary artery without angina pectoris (principal); R60.9 Edema, unspecified
CPT/HCPCS: 93306; Q9957

== ENCOUNTER → 2024-09-02 08:54 | Outpatient (BNV) | payer MEDICAID, SELFPAY | PROVIDERS: PCP Family Medicine; Visit Provider Internal Medicine | DX: I42.2 Other hypertrophic cardiomyopathy (principal) | CPT/HCPCS: 93306 ==

== ENCOUNTER → 2024-09-19 19:30 | Outpatient (BNV) | payer MEDICAID, SELFPAY | PROVIDERS: PCP Family Medicine; Visit Provider Psychiatry & Neurology Neurology | DX: G47.33 Obstructive sleep apnea (adult) (pediatric) (principal) | CPT/HCPCS: 95811 ==

== ENCOUNTER → 2024-09-19 19:30 | Outpatient (REF) | payer MEDICAID, SELFPAY | LOC: HO.SL 19:30 | PROVIDERS: PCP Family Medicine; Visit Provider Family Medicine | DX: G47.30 Sleep apnea, unspecified (principal) | CPT/HCPCS: 95811 ==

== ENCOUNTER 2024-10-06 10:13 | Outpatient (REF) | payer MEDICAID, SELFPAY ==
[2024-10-06 11:47] LABS: Cholesterol 190 mg/dL (<200); HDL Cholesterol 33 mg/dL (>40); LDL Cholesterol Calculated 104 mg/dL (<100); Triglycerides 269 mg/dL (<150)
== END 2024-10-06 10:14 | disposition home or self-care (01) ==
LOC: HO.LAB 10:13
PROVIDERS: PCP Family Medicine; Visit Provider Internal Medicine
DX: I25.10 Atherosclerotic heart disease of native coronary artery without angina pectoris (principal); E78.5 Hyperlipidemia, unspecified
CPT/HCPCS: 36415; 80061; 99212

== ENCOUNTER 2024-10-06 10:13 | Outpatient (AMB) | payer MEDICAID, SELFPAY ==
[2024-10-06 10:26] VITALS: BP 110/70; PULSE 84; BMI 32.7
--- NOTE | 2024-10-06 10:26 | A.OFFVIS_ITS ---
Vital Signs 10/06/24 10:26 Height 5 ft 11 in Weight 234 lb 2.095 oz BMI 32.7 BP 110/70 Blood Pressure Location Lt brachial Position Sitting Pulse 84 Pulse Source Pulse Oximeter Intake Visit Reasons: 6 mth s/p echo Pan Helper Required: No Accompanied by: Self / Same As Patient Allergies topiramate [From TOPAMAX] Allergy (Unknown, Verified 07/05/24 19:53) SENSATION OF PINS AND NEEDLES IN HANDS Medication List - Last Reconciled 10/06/24 by Yon Moreira MD amitriptyline 50 mg PO BEDTIME ascorbic acid (vitamin C) (Vitamin C) 500 mg PO BID buprenorphine-naloxone 8-2 mg (Suboxone) 10 mg sublingual DAILY pmmshtjtni-ijsbbbhgnbzce-woes 50-325-40 mg 1 - 2 tabs PO Q6H PRN cholecalciferol (vitamin D3) 50 mcg PO DAILY cyclobenzaprine 5 - 10 mg (1 - 2 x 5 mg) PO TID PRN fluticasone propionate 50 mcg/actuation 1 spray intranasal DAILY ibuprofen 600 mg PO Q6H PRN naproxen 500 mg PO Q8-12H PRN omeprazole 20 mg PO QAM HPI Comments Details: Hudson returns for follow-up. In the past, he was seen regarding chest pains. That led to further workup including echocardiogram, stress test and coronary CTA. He has mild coronary disease but nothing of clinical significance. Hence most likely thought to be noncardiac chest pains. He still has similar symptoms. History of substance abuse in the past but not recently. [facility] Medical History Swelling CAD (coronary artery disease) Migraines Surgical History No pertinent past surgical history Family History Father Heart problem Social History (Updated 10/06/24 @ 10:30 by Sarika Jaffe CMA) Alcohol intake: former Patient Tobacco Use Status: Former Tobacco user Current occupational status: unemployed Current occupation: left handed Review of Systems Const Denies chills, Denies fatigue, Denies fever(s), Denies weight gain and Denies weight loss ENT Denies dizziness Card Denies chest pain, Denies leg edema, Denies lightheadedness, Denies palpitations, Denies dyspnea on exertion, Denies orthopnea and Denies other Resp Denies cough and Denies dyspnea on exertion GI Denies hematochezia and Denies change in stool character Musc Denies abnormal gait, Denies muscle weakness, Denies numbness, Denies radiating pain into limb and Denies tingling Neuro Denies abnormal gait, Denies dizziness, Denies numbness and Denies tingling Endo Denies fatigue and Denies palpitations Physical Exam Vital Signs: Last Vital Signs Pulse 84 10/06/24 10:26 BP 110/70 10/06/24 10:26 BMI result Body Mass Index 32.7 Const General: comfortable and no acute distress Orientation/consciousness: patient oriented x3 HEENT Other: Unremarkable Head: Yes normal to inspection Neck Neck: Yes normal visual inspection Chest Chest palpation & inspection: normal inspection of the chest Resp Auscultation: clear to auscultation bilaterally Cardio Palpation: normal PMI Heart sounds: S1 normal heart sound present, S2 normal heart sound present, no gallops, no murmurs and no rubs GI Palpation (GI): Soft to palpation Back/Spine/Pelvis Other: unremarkable Skin General skin exam: no rashes or lesions noted Neuro General: patient oriented x3 Extrem General: Yes normal to inspection Psych Mental Status: mental status grossly normal Assessment & Plan Assessment & Plan (1) CAD (coronary artery disease): Code(s): I25.10 - Atherosclerotic heart disease of [place] coronary artery without angina pectoris Category: Medical Plan In the ETT, he was able to reach 10.1 METS. Did not have angina. However, there was ST depression which was downsloping/horizontal concerning for ischemia. Then it was repeated with an exercise stress echo which was unremarkable at 10.6 METS. Echocardiogram in 2021 showed preserved LVEF at 60-65% and mildly diminished peak global longitudinal strain. Coronary CTA-minimal stenosis in the proximal LAD from noncalcified plaque. Otherwise no significant findings. Overall, chest pain is noncardiac and does not need any further workup at this time. With regard to mild coronary disease, consider statins. Cholesterol profile shows LDL 104 mg/dL and triglycerides 269 mg/dL. Slightly abnormal LFTs. Can start statins. Recheck labs in 3 months. Orders: Orders Liver Panel 3 Months I25.10 - Atherosclerotic heart disease of [place] coronary artery without angina pectoris Lipid Panel 3 Months E78.5 - Hyperlipidemia, unspecified, I25.10 - Atherosclerotic heart disease of [place] coronary artery without angina pectoris Lipid Panel Today I25.10 - Atherosclerotic heart disease of [place] coronary artery without angina pectoris Medications: New atorvastatin 10 mg PO QPM 90 tabs 0RF Coding Level of Care Code Est Pt Level 3 (62703) Diagnoses CAD (coronary artery disease) I25.10
--- OUTSIDE RECORDS SUMMARY | 2024-10-06 11:54 | XMS_ITS | Data Portability ---
Author Organization MD - [facility], Allergy Address [address] [place] [id number] Care Team Providers Care Engine Room Operator Name Role Phone JESSICA YEBOAH Referring Provider [...] Time Bilateral disorder of Eustachia n tubes [id number] Active 2022 Other specified disorders of Eustachia n tube, bilateral ; Note: Date Diagnosed : 01/23/2023 3:21 PM (H69.83) Not Available [facility] 4 03:25:27 Migraine [id number] Active 2022 Other migraine, not intractab le, without status migrainos us; Note: Date Diagnosed : 01/23/2023 3:47 PM (G43.809) Not Available [facility] 4 03:25:27 Otalgia of left ear [id number] Active 2022 Otalgia, left ear; Note: Date Diagnosed : 01/23/2023 3:22 PM (H92.02) Not Available [facility] 4 03:25:27 Acute non-suppu rative otitis media of right ear [id number] 84058 Active 2023 MAURA BARBER MD [address] [place] [address], [facility] [place], [address] , [facility] - [facility] 4 09:48:03 Problem Notes None recorded. Medical Equipment None Reported. Allergies Allergen ID Allergen Name Allergen Category Reaction Reaction Severity Criticality Documentation Date Start Date Code Code System Note Provider Name and Address Organization Details Recorded Time 79954 Topamax medicatio n other Not available Not available 01/26/2024 47463 3 RxNorm React ion: Unkno wn; Not Available [facility] 4 00:48:43 Medications Name Sig [...] mg-40 mg tablet active Medicati on ID: [id number] B rand Name: butalbit al-aceta minophen -caff [...] elayed release 08/15 completed Medicati on ID: [id number] B rand Name: omeprazo le Send Method: [...] 20 mg capsule active Medicati on ID: [id number] B rand Name: fluoxeti ne Send Method: [...] Diagnosis/Indication Diagnosis SNOMED-CT Code Diagnosis ICD10 Code Diagnosis Note [id number] MAURA BARBER MD [facility] [address] [address] 08/15/2024 09:11:12 08/15/2024 09:50:26 Acute non-suppurative otitis media of right ear [id number] H65.191 Health Concerns Section Related Observation LastModified by Organization Detai ls LastModified Time None Recorded Concern Status LastModified by Organization Details LastModified Time None Recorded Advance Directives Directive None Recorded Payers Encounter Date Sequence Insurance Name Policy Number Policy Greer Covered Member ID Greer Member ID Guarantor Name 08/15/2024 1 MEDICAID-MD: [facility] Hudson Atkins [id number] Hudson Atkins Notes Date Note Type Note Provider Name and Address Organization Details Recorded Time 08/15/2024 text/html 06/2024 ER visit for Right ear achewas rx oral abx then developed bloody otorrhea right side and decrease hearingno hx of prior chronic ear infections PV 01/23/23 Linda - tinnitus, poor sleep. symptoms of vestibular migraine MAURA BARBER MD [address] [place] [address], [place], [address], [facility] - [facility] 08/15/2024 09:49:03
== END 2024-10-06 10:40 | disposition home or self-care (01) ==
PROVIDERS: PCP Family Medicine; Visit Provider Internal Medicine
DX: I25.10 Atherosclerotic heart disease of native coronary artery without angina pectoris (principal)
CPT/HCPCS: 99213

== ENCOUNTER 2025-04-14 10:04 | Outpatient (REF) | payer MEDICARE, MEDICAID, SELFPAY ==
--- OUTSIDE RECORDS SUMMARY | 2025-04-14 10:14 | XMS_ITS | Encounter Summary ---
Author Organization [employer] Address [address] [facility] [address] [place] [address] Care Team Providers Care Metal Mockup Maker Name Role Phone Funmilayo Kellogg MD Primary Care Provider [phone] Reason for Visit * Reason Onset Date Comments Nurse Triage 11/10/2023 Encounter Details Date Type Department Care Team ([facility] st Contact Info) Description 11/10/2023 Telephone [facility] [address] [place] [address] Funmilayo Kellogg MD [address] [place] [phone] Nurse Triage Social History Tobacco Use Types Packs/Day Years Used Date Smoking Tobacco: Former Cigarettes Passive Smoke Exposure: Never Smokeless Tobacco: Never Alcohol Use Standard Drinks/Week Comments Never 0 (1 standard drink = 0.6 oz pur e alcohol) Depression Answer Date Recorded Patient Health Questionnaire-9 Score 4 10/22/2022 Housing Stability Answer Date Recorded What is your housing situation today? I have carol reeder 06/29/[address] you li ve. Do you have problems with any of the following? None of the above 06/29/2023 Food Insecurity Answer Date Recorded Within the past 12 months, y ou worried that your food would run out before you got money to buy more: Never True 06/29/2023 Within the past 12 months,th e food you bought just didn't last and you didn't have enough money to get more: Never True Transportation Answer Date Recorded In the past 12 months, has l ack of transportation kept you from medical appts, meetings, work or from getting things needed for daily living? No 06/29/2023 Utilities Answer Date Recorded In the past 12 months, has t he electric, gas, oil or water company threatened to shut off services in your home? No 06/29/2023 Depression Answer Date Recorded Patient Health Questionnaire-2 Score 1 10/22/2022 Sex and Gender Information Value Date Recorded Sex Assigned at Male 07/14/2022 10:15 AM EDT Legal Sex Male 10:15 AM EDT Gender Identity Male 07/14/2022 10:15 AM EDT Sexual Orientation Straight 07/14/2022 10 :15 AM EDT documented as of this encounter Miscellaneous Notes * Telephone Encounter - Elsy Toro RN - 11/10/2023 9:58 AM EST Triage call Pt reports abdominal pain which is at level of umbilicus and radiates to middle of back. Pt describes pain as sharp and it comes and goes even when urinates . Pt reports pain for several days. Denies burning sensation or sour taste in mouth. Pt has had BM today which is described as slightly hard. Pt is encouraged to drink extra liquids. Apt in [facility] @ 1120am today. Insurance is verified as active prior to booking. Pt agrees with disposition and home care reviewed. Protocol Used: Abdominal Pain - Male (Adult) Protocol-Based Disposition: See in Office or Video Visit Today Video visit not offered Positive Triage Questions: * Moderate pain (e.g., interferes with normal activities) that comes and goes (cramps) lasts > 24 hours (Exception: Pain with Vomiting or Diarrhea - see that Protocol.) * Patient wants to be seen * All higher-acuity triage questions were negative Care Advice Discussed: * Reassurance and Education - Stomach Pain * Rest * Drink Clear Fluids * Diet * Pass a Stool * Reasons To Call Back - Severe pain lasts over 1 hour - Constant pain lasts over 2 hours - Intermittent pains (e.g., comes and goes, cramps) lasts over 48 hours - You become worse * Telephone Encounter - Flavia Vivas - 11/10/2023 9:33 AM EST Symptoms: Abdominal Pain - Male, Urine Symptoms Outcome: Schedule a same-day appointment or talk to a nurse or provider today Reason: Caller denied all higher acuity questions The caller accepted this outcome documented in this encounter Plan of Treatment Upcoming Encounters Date Type Department Care Team (Late st Contact Info) Description 05/02/2025 9:15 AM EDT Office Visit [facility] [address] [place] [address] Davis Vásquez MD [address] [place] [address] documented as of this encounter Visit Diagnoses Not on filedocumented in this encounter Additional Health Concerns Assessment Noted Time PHQ-9 Depression Total Score: 4 10/22/19 23 4:00 PM EST documented as of this encounter Care Teams Metal Mockup Maker Relationship Specialty Start Date End Date Funmilayo Kellogg MD [address] [place] [id number] PCP - General Family Medicine 06/12/21 documented as of this encounter
[2025-04-14 12:19] LABS: MANUAL DIFF FLAG NO
[2025-04-14 12:24] LABS: Hematocrit 43.8 % (42.0-52.0); Hemoglobin 14.9 g/dl (14.0-18.0); Imm Gran Abs Auto 0.01 X10*3/uL (0.00-0.03); Imm Gran Pct Auto 0.2 % (0.0-0.4); Lymphocytes Absolute Auto 2.1 X10*3/uL (1.2-4.9); Mean Corpuscular HGB Conc 34.0 g/dl (31.0-36.0); Mean Corpuscular Hemoglobin 29.4 pg (27.0-33.0); Mean Corpuscular Volume 86.4 fL (80.0-98.0); NRBC Abs Auto 0.000 X10*3/uL (0.0-0.012); NRBC Pct Auto 0.0 /100WBC (0.0-0.2); Platelet Count 217 X10*3/uL (160-400); Red Blood Count 5.07 X10*6/uL (4.60-5.80); White Blood Count 4.4 X10*3/uL (4.8-10.8)
[2025-04-14 13:20] LABS: Alanine Aminotransferase 63 U/L (0-40); Albumin Level 4.1 g/dL (3.5-5.0); Alkaline Phosphatase 147 U/L (39-117); Anion Gap 9 (12-20); Aspartate Amino Transferase 48 U/L (5-37); Blood Urea Nitrogen 12 mg/dL (9-16); Calcium 8.5 mg/dL (8.4-10.2); Carbon Dioxide 29 mmol/L (22-29); Chloride 105 mmol/L (96-108); Cholesterol 162 mg/dL (<200); Estimated Glomerular Filt Rate > 60; HDL Cholesterol 32 mg/dL (>40); Potassium 4.2 mmol/L (3.3-5.1); Sodium 139 mmol/L (135-145); Total Protein 7.0 g/dL (6.5-8.0); Triglycerides 91 mg/dL (<150)
[2025-04-14 14:47] LABS: Reflex LDLD? No
== END 2025-04-14 10:05 | disposition home or self-care (01) ==
LOC: HO.HHCL 10:04
PROVIDERS: PCP Family Medicine; Visit Provider Family Medicine
DX: E66.811 Obesity, class 1 (principal); Z68.32 Body mass index [BMI] 32.0-32.9, adult; E78.5 Hyperlipidemia, unspecified
CPT/HCPCS: 36415; 80053; 80061; 82306; 85025